=== PATIENT | male | born 1950 | race Caucasian/White ===

== ENCOUNTER 2016-07-18 14:20 | Emergency (ER) | payer OTHER ==
[~2016-07-18] VITALS: Ht 180.3 cm; Wt 89.4 kg
[~2016-07-18 14:20] MED LIST: ADVAIR HFA120 INHAL1 IH; ADVAIR HFA120 INHALA IH; ANCEF,KEFZOL1 GM IM; ANCEF,KEFZOL1 GM IV; APLISOL5 TUB UNIT ID; AQUAPHOR OINTM105 GM TP; ASPERCREME76.5 GM TP; ASPIRIN325 MG PO; ATORVASTATIN CA80 MG PO; BENADRYL25 MG PO; CALCITRIOL0.25 MCG PO; CALCIUM ACETAT668 MG PO; CALPHRON667 MG PO; CEFEPIME-D2 GM/50 ML IV; CIPROFLOXACIN250 MG PO; CLEARLAX510 GM PO; CLINDAMYCIN HC300 MG PO; CYMBALTA60 MG PO; DOXEPIN HCL25 MG PO; DRISDOL50000 UNIT PO; DULCOLAX10 MG PR; DUONEB 2.5-0.5 M3 ML AEROSOL; ERGOCALCIF50000 UNIT PO; FENOFIBRATE160 M1 PO; FERROUS SULFAT325 MG PO; FLEET ENEMA-AD118 ML PR; FLEET MINERAL133 ML PR; FLORANEX CHE1 TABLET PO; FLOVENT 11120 INHALA IH; FUROSEMIDE20 MG PO; FUROSEMIDE40 MG PO; GABAPENTIN300 MG PO; GRALISE300 MG PO; HYDROCHLOROTHIA25 MG PO; IRON325 MG PO; LASIX20 MG PO; LASIX40 MG PO; LEVOFLOXACIN750 MG PO; LIDOCAINE700 MG TD; LIDODERM 5% P1 PATCH TD; LIDOPATCH1 EACH TD; LIPITOR80 MG PO; LISINOPRIL5 MG PO; LITE COAT ASPI325 M1 PO; LOPRESSOR25 MG PO; LOPRESSOR50 MG PO; LYRICA150 MG PO; METOPROLOL TART50 MG PO; MIDODRINE HCL10 MG PO; MILK OF MAGN PO; MIRALAX255 GM PO; NEPHRO-VITE,1 TABLET PO; NEURONTIN300 MG PO; NORCO 5/3251 TABLET PO; OXYCODONE HCL5 MG PO; OXYCONTIN10 MG PO; OXYCONTIN15 MG PO; PLAVIX75 MG PO; PREDNISONE5 MG PO; RENVELA800 MG PO; ROBAFEN CF SYR118 M1 PO; ROBITUSSIN100 MG/5 M PO; ROXICODONE5 MG PO; SENNA8.6 MG PO; SINEQUAN25 MG PO; SPIRIVA RESPIMAT4 GM IH; SPIRIVA1 INHALATI IH; TAMSULOSIN HCL0.4 MG PO; TOPROL XL25 MG PO; TYLENOL EXTRA500 MG PO; TYLENOL REGULA325 MG PO; VANCOMYCIN HCL1 GM IV; VENTOLIN HFA18 GM IH; VIRT-CAPS SOFTGE1 MG PO; ZESTRIL2.5 MG PO; ZETIA10 MG PO; ZOCOR80 MG PO
[2016-07-18 16:24] LABS: HEMATOCRIT 30.3 % (38.0-50.0); MCH 26.9 PG (29.0-34.0); MCHC 29.7 G/DL (30.0-36.0); MCV 90.7 FL (86-99); MEAN PLAT.VOLUME 8.7 uM^3 (9.0-12.4); PLATELET COUNT 250 K/uL (156-360); RBC DIS.WIDTH-CV 16.6 % (11.8-14.6); RED BLOOD COUNT 3.34 M/uL (4.00-5.50); WHITE BLOOD COUNT 9.4 K/uL (4.1-10.2)
[2016-07-18 16:34] LABS: CHLORIDE 100 mEq/L (99-109); POTASSIUM 3.8 mEq/L (3.7-5.4); SODIUM 137 mEq/L (136-147)
[2016-07-18 16:36] LABS: GLUCOSE 101 mg/dL (70-99)
[2016-07-18 16:38] LABS: ANION GAP 10 MEQ/L (2-14)
[2016-07-18 16:40] LABS: GFR ESTIMATE (CALCULATED) 34 mL/min/
[2016-07-18 16:41] LABS: UREA NITROGEN (BUN) 21 mg/dL (9-23)
[2016-07-18 16:45] LABS: TROP-I INTERPRETATION NEGATIVE; TROPONIN-I 0.03 ng/mL (0.0-0.30)
[2016-07-18 17:38] VITALS: BP 143/72
== END 2016-07-18 17:49 ==
LOC: EME 14:20
PROVIDERS: Emergency Medicine
DX: R06.00 Dyspnea, unspecified (principal); I25.2 Old myocardial infarction; Z99.2 Dependence on renal dialysis; Z99.81 Dependence on supplemental oxygen; Z95.1 Presence of aortocoronary bypass graft; Z95.5 Presence of coronary angioplasty implant and graft; Z88.0 Allergy status to penicillin; Z88.6 Allergy status to analgesic agent
CPT/HCPCS: 71020; 80048; 84484; 85027; 93005; 99281; 99284

== ENCOUNTER 2016-09-25 02:57 | Inpatient (IN) | payer OTHER ==
[~2016-09-25] VITALS: Ht 180.3 cm; Wt 93.6 kg
[2016-09-25 04:02] LABS: EOSINOPHIL (%) 2.7 % (0-5); EOSINOPHIL COUNT 0.2 K/uL (0-0.3); HEMATOCRIT 36.3 % (38.0-50.0); IMMATURE GRANULOCYTE (%) 0.6 % (0.0-0.7); INSTRUMENT ABS NEUTROPHIL CT 5.2 K/uL; LYMPHOCYTE COUNT 0.9 K/uL (1.0-2.8); MCHC 28.7 G/DL (30.0-36.0); MCV 97.6 FL (86-99); MEAN PLAT.VOLUME 9.6 uM^3 (9.0-12.4); MONOCYTE (%) 9.9 % (3-12); MONOCYTE COUNT 0.7 K/uL (0-0.8); NEUTROPHIL (%) 73.8 % (45-76); NEUTROPHIL COUNT 5.2 K/uL (1.8-6.4); PLATELET COUNT 150 K/uL (156-360); RBC DIS.WIDTH-CV 17.1 % (11.8-14.6); RBC DIS.WIDTH-SD 60.7 % (39-53); RED BLOOD COUNT 3.72 M/uL (4.00-5.50); WHITE BLOOD COUNT 7.1 K/uL (4.1-10.2)
[2016-09-25 04:13] LABS: CHLORIDE 98 mEq/L (99-109); POTASSIUM 4.8 mEq/L (3.7-5.4); SODIUM 136 mEq/L (136-147)
[2016-09-25 04:15] LABS: GLUCOSE 86 mg/dL (70-99)
[2016-09-25 04:16] LABS: ANION GAP 11 MEQ/L (2-14)
[2016-09-25 04:18] LABS: GFR ESTIMATE (CALCULATED) 17 mL/min/
[2016-09-25 04:19] LABS: UREA NITROGEN (BUN) 38 mg/dL (9-23)
[2016-09-25 04:21] LABS: CREATINE KINASE 5 IU/L (1-294)
[2016-09-25 04:25] LABS: TROP-I INTERPRETATION NEGATIVE; TROPONIN-I 0.01 ng/mL (0.0-0.30)
[2016-09-25] MEDS ORDERED: DURAGESIC25 MCG TD (10:36)
[2016-09-25] MEDS ORDERED: INDERAL20 MG PO (10:44)
[2016-09-25] MEDS ORDERED: COLACE100 MG PO (10:46)
[2016-09-25] MEDS ORDERED: ADVAIR HFA120 INHAL1 IH (10:46)
[2016-09-25] MEDS ORDERED: LEVAQUIN500 MG PO (10:50)
[2016-09-25] MEDS ORDERED: ANORO ELLIPTA1 EACH IH (10:51)
[2016-09-25 12:16] LABS: TROP-I INTERPRETATION NEGATIVE; TROPONIN-I < 0.01 ng/mL (0.0-0.30)
[2016-09-25 18:52] VITALS: BP 113/72
[2016-09-25 19:30] VITALS: BP 116/58
[2016-09-25 23:23] VITALS: BP 124/72
[2016-09-26 03:13] VITALS: BP 109/59
[2016-09-26 07:09] LABS: ALKALINE PHOSPHATASE 112 IU/L (3-129); ANION GAP 6 MEQ/L (2-14); CHLORIDE 98 MEQ/L (99-109); GFR ESTIMATE (CALCULATED) 14 mL/min/; GLUCOSE 81 mg/dL (70-99); POTASSIUM 4.7 MEQ/L (3.7-5.4); SAMPLE HEMOLYSIS CHECK 0; SAMPLE ICTERIC CHECK 0; SAMPLE LIPEMIA CHECK 0; SODIUM 134 MEQ/L (136-147); TOTAL BILIRUBIN 0.9 MG/DL (0.0-1.0); UREA NITROGEN (BUN) 43 mg/dL (9-23)
[2016-09-26 07:14] LABS: HEMATOCRIT 32.3 % (38.0-50.0); MCH 28.1 PG (29.0-34.0); MCHC 29.1 G/DL (30.0-36.0); MCV 96.7 FL (86-99); MEAN PLAT.VOLUME 9.9 uM^3 (9.0-12.4); PLATELET COUNT 132 K/uL (156-360); RBC DIS.WIDTH-SD 59.8 % (39-53); RED BLOOD COUNT 3.34 M/uL (4.00-5.50); WHITE BLOOD COUNT 6.1 K/uL (4.1-10.2)
[2016-09-26 13:14] VITALS: BP 107/64
[2016-09-26 15:32] VITALS: BP 96/53
[2016-09-26 20:19] VITALS: BP 107/60
[2016-09-26 23:39] VITALS: BP 107/65
[2016-09-27] VITALS (7 sets, daily range): BP systolic 101–125; BP diastolic 55–73
[2016-09-27 07:16] LABS: BASOPHIL COUNT 0.1 K/uL (0-0.1); EOSINOPHIL (%) 3.4 % (0-5); EOSINOPHIL COUNT 0.2 K/uL (0-0.3); HEMATOCRIT 34.2 % (38.0-50.0); IMMATURE GRANULOCYTE (%) 0.2 % (0.0-0.7); INSTRUMENT ABS NEUTROPHIL CT 3.9 K/uL; LYMPHOCYTE COUNT 0.8 K/uL (1.0-2.8); MCH 28.2 PG (29.0-34.0); MCHC 29.2 G/DL (30.0-36.0); MCV 96.3 FL (86-99); MEAN PLAT.VOLUME 9.9 uM^3 (9.0-12.4); MONOCYTE COUNT 0.5 K/uL (0-0.8); NEUTROPHIL (%) 72.5 % (45-76); NEUTROPHIL COUNT 3.9 K/uL (1.8-6.4); PLATELET COUNT 144 K/uL (156-360); RBC DIS.WIDTH-SD 60.3 % (39-53); RED BLOOD COUNT 3.55 M/uL (4.00-5.50); WHITE BLOOD COUNT 5.4 K/uL (4.1-10.2)
[2016-09-27 08:36] LABS: ANION GAP 7 MEQ/L (2-14); CHLORIDE 99 MEQ/L (99-109); POTASSIUM 4.2 MEQ/L (3.7-5.4); SAMPLE HEMOLYSIS CHECK 0; SAMPLE ICTERIC CHECK 0; SAMPLE LIPEMIA CHECK 0; SODIUM 137 MEQ/L (136-147)
[2016-09-27 08:43] LABS: GFR ESTIMATE (CALCULATED) 19 mL/min/; GLUCOSE 101 mg/dL (70-99); UREA NITROGEN (BUN) 27 mg/dL (9-23)
[2016-09-28 03:30] VITALS: BP 108/60
[2016-09-28 07:23] VITALS: BP 110/55
[2016-09-28 08:29] LABS: HEMATOCRIT 31.8 % (38.0-50.0); MCHC 28.9 G/DL (30.0-36.0); MCV 96.7 FL (86-99); MEAN PLAT.VOLUME 9.6 uM^3 (9.0-12.4); PLATELET COUNT 128 K/uL (156-360); RBC DIS.WIDTH-CV 16.9 % (11.8-14.6); RBC DIS.WIDTH-SD 59.6 % (39-53); RED BLOOD COUNT 3.29 M/uL (4.00-5.50); WHITE BLOOD COUNT 5.7 K/uL (4.1-10.2)
[2016-09-28 08:39] LABS: ANION GAP 8 MEQ/L (2-14); CHLORIDE 99 MEQ/L (99-109); POTASSIUM 4.3 MEQ/L (3.7-5.4); SAMPLE HEMOLYSIS CHECK 0; SAMPLE ICTERIC CHECK 0; SAMPLE LIPEMIA CHECK 0; SODIUM 136 MEQ/L (136-147)
[2016-09-28 08:45] LABS: GFR ESTIMATE (CALCULATED) 17 mL/min/; GLUCOSE 106 mg/dL (70-99); UREA NITROGEN (BUN) 34 mg/dL (9-23)
[2016-09-28 11:48] VITALS: BP 144/64
[2016-09-28 16:14] VITALS: BP 136/74
[2016-09-28 22:43] VITALS: BP 127/75
[2016-09-29 03:03] VITALS: BP 117/64
[2016-09-29 07:30] VITALS: BP 124/77
[2016-09-29 11:06] VITALS: BP 132/87
[2016-09-29 22:35] VITALS: BP 123/73
[2016-09-29 23:00] VITALS: BP 134/80
[2016-09-30 00:29] LABS: TROP-I INTERPRETATION NEGATIVE; TROPONIN-I 0.02 ng/mL (0.0-0.30)
[2016-09-30 04:44] VITALS: BP 119/69
[2016-09-30 06:41] LABS: TROP-I INTERPRETATION NEGATIVE; TROPONIN-I 0.03 ng/mL (0.0-0.30)
[2016-09-30 07:09] VITALS: BP 114/77
[2016-09-30 08:23] LABS: BASOPHIL COUNT 0.1 K/uL (0-0.1); EOSINOPHIL (%) 1.1 % (0-5); EOSINOPHIL COUNT 0.1 K/uL (0-0.3); HEMATOCRIT 33.8 % (38.0-50.0); IMMATURE GRANULOCYTE (%) 0.3 % (0.0-0.7); INSTRUMENT ABS NEUTROPHIL CT 6.4 K/uL; LYMPHOCYTE COUNT 0.8 K/uL (1.0-2.8); MCH 27.7 PG (29.0-34.0); MCHC 29.3 G/DL (30.0-36.0); MCV 94.4 FL (86-99); MEAN PLAT.VOLUME 10.1 uM^3 (9.0-12.4); MONOCYTE (%) 7.8 % (3-12); MONOCYTE COUNT 0.6 K/uL (0-0.8); NEUTROPHIL (%) 80.6 % (45-76); NEUTROPHIL COUNT 6.4 K/uL (1.8-6.4); PLATELET COUNT 131 K/uL (156-360); RBC DIS.WIDTH-CV 16.5 % (11.8-14.6); RBC DIS.WIDTH-SD 57.5 % (39-53); RED BLOOD COUNT 3.58 M/uL (4.00-5.50)
[2016-09-30 08:29] LABS: ANION GAP 6 MEQ/L (2-14); CHLORIDE 97 MEQ/L (99-109); GFR ESTIMATE (CALCULATED) 18 mL/min/; GLUCOSE 91 mg/dL (70-99); POTASSIUM 4.8 MEQ/L (3.7-5.4); SAMPLE HEMOLYSIS CHECK 0; SAMPLE ICTERIC CHECK 0; SAMPLE LIPEMIA CHECK 0; SODIUM 133 MEQ/L (136-147); UREA NITROGEN (BUN) 31 mg/dL (9-23)
[2016-09-30 12:00] VITALS: BP 110/68
[2016-09-30 14:39] LABS: TROP-I INTERPRETATION NEGATIVE; TROPONIN-I 0.03 ng/mL (0.0-0.30)
[2016-09-30 17:11] VITALS: BP 107/65
[2016-09-30 19:24] VITALS: BP 105/66
[2016-09-30 22:03] LABS: TROP-I INTERPRETATION NEGATIVE; TROPONIN-I 0.03 ng/mL (0.0-0.30)
[2016-09-30 23:43] VITALS: BP 117/66
[2016-10-01 03:50] VITALS: BP 114/68
[2016-10-01 07:27] VITALS: BP 127/67
[2016-10-01 16:14] VITALS: BP 114/63
[2016-10-01 19:01] VITALS: BP 100/64
[2016-10-01 23:56] VITALS: BP 104/69
[2016-10-02 03:41] VITALS: BP 112/78
[2016-10-02 08:00] VITALS: BP 126/85
[2016-10-02 10:59] VITALS: BP 110/62
[2016-10-02] MEDS ORDERED: LOPRESSOR50 MG PO (14:36)
[2016-10-02] MEDS ORDERED: OXYCODONE HCL5 MG PO (14:36)
[2016-10-02] MEDS ORDERED: FUROSEMIDE80 MG PO (14:36)
[2016-10-02 15:25] VITALS: BP 104/72
== END 2016-10-02 19:33 | DRG 291 ==
LOC: EME 02:57 → 4EAST 05:25 → EDOF 05:25 → 5EAST 05:25 → 4EAST 17:34 → 5EAST 09-27 00:51
PROVIDERS: Emergency Medicine; Internal Medicine; Internal Medicine Nephrology
PROC: 5A1D60Z (ICD-10-PCS; principal; 2016-09-26)
DX: I13.2 Hypertensive heart and chronic kidney disease with heart failure and with stage 5 chronic kidney disease, or end stage renal disease (principal); I50.33 Acute on chronic diastolic (congestive) heart failure; N18.6 End stage renal disease; Z99.2 Dependence on renal dialysis; I48.2 Chronic atrial fibrillation; D50.9 Iron deficiency anemia, unspecified; I27.2 Other secondary pulmonary hypertension; D63.1 Anemia in chronic kidney disease; Z99.81 Dependence on supplemental oxygen; I25.10 Atherosclerotic heart disease of native coronary artery without angina pectoris; Z95.5 Presence of coronary angioplasty implant and graft; Z90.5 Acquired absence of kidney; M06.9 Rheumatoid arthritis, unspecified; Z87.891 Personal history of nicotine dependence; N40.0 Benign prostatic hyperplasia without lower urinary tract symptoms; G47.33 Obstructive sleep apnea (adult) (pediatric); I08.1 Rheumatic disorders of both mitral and tricuspid valves; I95.89 Other hypotension; E66.01 Morbid (severe) obesity due to excess calories; Z68.30 Body mass index [BMI] 30.0-30.9, adult; J44.9 Chronic obstructive pulmonary disease, unspecified; R00.0 Tachycardia, unspecified
CPT/HCPCS: 71010; 80048; 80048 91; 80053; 80069; 82040; 82550; 83880; 84100; 84484; 85025; 85027; 87340; 93005; 94640; 94640 76; 94760; 94799; 99202; 99281; 99285; J1644; J1940; J7644; P9047

== ENCOUNTER 2016-10-05 14:32 | Emergency (ER) | payer OTHER ==
[~2016-10-05] VITALS: Ht 180.3 cm; Wt 84.7 kg
[~2016-10-05 14:32] MED LIST changes: +ANORO ELLIPTA1 EACH IH; +COLACE100 MG PO; +DURAGESIC25 MCG TD; +FUROSEMIDE80 MG PO; +INDERAL20 MG PO; +LEVAQUIN500 MG PO
[2016-10-05 17:00] VITALS: BP 102/61
== END 2016-10-05 17:02 ==
LOC: EME → EDBD 14:32 → EME 14:32
PROC: 0HQLXZZ Repair Left Lower Leg Skin, External Approach (ICD-10-PCS; principal; 2016-10-05)
DX: S81.812A Laceration without foreign body, left lower leg, initial encounter (principal); N18.6 End stage renal disease; Z99.2 Dependence on renal dialysis; Z88.0 Allergy status to penicillin; W45.8XXA Other foreign body or object entering through skin, initial encounter; Z88.6 Allergy status to analgesic agent
CPT/HCPCS: 99281; 99285

== ENCOUNTER 2016-11-02 15:24 | Emergency (ER) | payer OTHER ==
[~2016-11-02] VITALS: Ht 180.3 cm; Wt 78.9 kg
[2016-11-02 16:10] LABS: HEMATOCRIT 34.6 % (38.0-50.0); MCH 27.3 PG (29.0-34.0); MCHC 29.5 G/DL (30.0-36.0); MCV 92.8 FL (86-99); MEAN PLAT.VOLUME 9.2 uM^3 (9.0-12.4); RBC DIS.WIDTH-SD 54.6 % (39-53); RED BLOOD COUNT 3.73 M/uL (4.00-5.50); WHITE BLOOD COUNT 6.3 K/uL (4.1-10.2)
[2016-11-02 16:12] LABS: PLATELET COUNT 212 K/uL (156-360)
[2016-11-02 16:19] LABS: CHLORIDE 99 mEq/L (99-109); POTASSIUM 3.9 mEq/L (3.7-5.4); SODIUM 139 mEq/L (136-147)
[2016-11-02 16:21] LABS: GLUCOSE 82 mg/dL (70-99)
[2016-11-02 16:22] LABS: ANION GAP 8 MEQ/L (2-14)
[2016-11-02 16:25] LABS: GFR ESTIMATE (CALCULATED) 32 mL/min/
[2016-11-02 16:26] LABS: UREA NITROGEN (BUN) 19 mg/dL (9-23)
[2016-11-02] MEDS ORDERED: ZOFRAN4 MG PO (16:39)
[2016-11-02 17:35] VITALS: BP 100/66
== END 2016-11-02 17:53 ==
LOC: EME 15:24
PROVIDERS: Emergency Medicine
DX: E86.0 Dehydration (principal); R11.2 Nausea with vomiting, unspecified; R19.7 Diarrhea, unspecified; I12.0 Hypertensive chronic kidney disease with stage 5 chronic kidney disease or end stage renal disease; N18.6 End stage renal disease; Z99.2 Dependence on renal dialysis; Z90.5 Acquired absence of kidney; J44.9 Chronic obstructive pulmonary disease, unspecified; J45.909 Unspecified asthma, uncomplicated; Z95.1 Presence of aortocoronary bypass graft; Z95.5 Presence of coronary angioplasty implant and graft
CPT/HCPCS: 71020; 80048; 85027; 99281; 99285; J2405; J7040

== ENCOUNTER 2016-11-04 14:39 | Inpatient (IN) | payer OTHER ==
[~2016-11-04] VITALS: Ht 180.3 cm; Wt 74.9 kg
[~2016-11-04 14:39] MED LIST changes: +ZOFRAN4 MG PO
[2016-11-04 15:43] LABS: BASOPHIL COUNT 0.1 K/uL (0-0.1); EOSINOPHIL (%) 1.6 % (0-5); EOSINOPHIL COUNT 0.2 K/uL (0-0.3); HEMATOCRIT 38.5 % (38.0-50.0); IMMATURE GRANULOCYTE (%) 0.4 % (0.0-0.7); INSTRUMENT ABS NEUTROPHIL CT 7.8 K/uL; LYMPHOCYTE COUNT 0.6 K/uL (1.0-2.8); MCH 27.4 PG (29.0-34.0); MCHC 28.6 G/DL (30.0-36.0); MCV 95.8 FL (86-99); MEAN PLAT.VOLUME 9.4 uM^3 (9.0-12.4); MONOCYTE (%) 8.6 % (3-12); MONOCYTE COUNT 0.8 K/uL (0-0.8); NEUTROPHIL (%) 82.9 % (45-76); NEUTROPHIL COUNT 7.8 K/uL (1.8-6.4); PLATELET COUNT 234 K/uL (156-360); RBC DIS.WIDTH-CV 16.2 % (11.8-14.6); RED BLOOD COUNT 4.02 M/uL (4.00-5.50); WHITE BLOOD COUNT 9.5 K/uL (4.1-10.2)
[2016-11-04 15:48] LABS: CHLORIDE 99 mEq/L (99-109); POTASSIUM 4.4 mEq/L (3.7-5.4); SODIUM 138 mEq/L (136-147)
[2016-11-04 15:51] LABS: ANION GAP 11 MEQ/L (2-14)
[2016-11-04 15:53] LABS: GFR ESTIMATE (CALCULATED) 32 mL/min/
[2016-11-04 15:54] LABS: UREA NITROGEN (BUN) 17 mg/dL (9-23)
[2016-11-04 15:57] LABS: GLUCOSE 108 mg/dL (70-99)
[2016-11-04 15:58] LABS: TROP-I INTERPRETATION NEGATIVE; TROPONIN-I 0.02 ng/mL (0.0-0.30)
[2016-11-04 17:15] LABS: ADD MIUA? YES; BILIRUBIN NEGATIVE; BLOOD MODERATE; COLOR YELLOW ((YELLOW)); GLUCOSE (STRIP) NEGATIVE; KETONES NEGATIVE; LEUKOCYTES MODERATE; NITRITE NEGATIVE; PROTEIN (STRIP) 100; SPECIFIC GRAVITY 1.009 (1.000-1.030); UROBILINOGEN 0.2 MG/DL (0.2-1.0)
[2016-11-04 17:32] LABS: CASTS NONE SEEN /LPF; EPITHELIAL CELLS NONE SEEN /HPF; MUCUS NONE SEEN /LPF
[2016-11-04 17:35] LABS: BACTERIA NONE SEEN /HPF; RED BLOOD CELLS NONE SEEN /HPF (0-5); UCUL ADDED? YES; WHITE BLOOD CELLS TNTC /HPF (0-5)
[2016-11-04 18:08] LABS: BASE EXCESS 3.8 mEq/L (-3 to +3); BICARBONATE 30.9 mEq/L (22-26); CARBOXY HGB 2.5 % (0-5); METHEMOGLOBIN 1.3 % (0-1.5); PCO2 60 mm Hg (35-45); PO2 103 mm Hg (80-100); SITE RR; pH 7.32 (7.35-7.45)
[2016-11-04 18:09] LABS: COMMENTS - BLOOD GASES A+C+; DEVICE VENT; FI02 50 %; MODE AC; PEEP 5 CM/H20; TIDAL VOLUME 400 ML; TOTAL RESP RATE 23 resp/min
[2016-11-04] MEDS ORDERED: ADVAIR HFA120 INHAL1 IH (18:12)
[2016-11-04 18:16] LABS: MECHANICAL RATE 14 resp/min
[2016-11-04] MEDS ORDERED: NEPHRO-VITE,1 TABLET PO (18:17)
[2016-11-04] MEDS ORDERED: LASIX80 MG PO (18:18)
[2016-11-04] MEDS ORDERED: LOPRESSOR25 MG PO (18:20)
[2016-11-04] MEDS ORDERED: RENVELA2.4 GM PO (18:22)
[2016-11-04] MEDS ORDERED: MILK OF MAGN PO (18:25)
[2016-11-04] MEDS ORDERED: OXYCODONE HCL10 MG PO (18:26)
[2016-11-04] MEDS ORDERED: TYLENOL REGULA325 MG PO (18:28)
[2016-11-04] MEDS ORDERED: ZOFRAN4 MG PO (18:29)
[2016-11-04 21:00] VITALS: BP 107/66; BP 86/58
[2016-11-04 21:46] LABS: BASE EXCESS 4.5 mEq/L (-3 to +3); BICARBONATE 31.6 mEq/L (22-26); CARBOXY HGB 2.1 % (0-5); COMMENTS - BLOOD GASES A+C+; DEVICE 980; FI02 50 %; MECHANICAL RATE 14 resp/min; METHEMOGLOBIN 1.4 % (0-1.5); MODE AC; PCO2 60 mm Hg (35-45); PEEP 5 CM/H20; PO2 93 mm Hg (80-100); SITE RR; TIDAL VOLUME 400 ML; TOTAL RESP RATE 30 resp/min; pH 7.33 (7.35-7.45)
[2016-11-04 22:00] VITALS: BP 70/51
[2016-11-04 22:30] VITALS: BP 74/47
[2016-11-04 23:00] VITALS: BP 78/46
[2016-11-04 23:04] LABS: METH RESISTANT S AUREUS PCR POSITIVE (NEGATIVE)
[2016-11-04 23:06] LABS: PROBE CHECK PASS
[2016-11-04 23:30] VITALS: BP 76/45
[2016-11-04 23:52] LABS: BASE EXCESS 4.9 mEq/L (-3 to +3); BICARBONATE 30.4 mEq/L (22-26); CARBOXY HGB 2.3 % (0-5); FI02 40 %; MECHANICAL RATE 18 resp/min; METHEMOGLOBIN 1.4 % (0-1.5); MODE ACVC; PCO2 49 mm Hg (35-45); PEEP 5 CM/H20; PO2 78 mm Hg (80-100); TIDAL VOLUME 500 ML; TOTAL RESP RATE 18 resp/min
[2016-11-04 23:53] LABS: COMMENTS - BLOOD GASES C+; DEVICE VENT; SITE RR
[2016-11-04 23:58] LABS: POINT-OF-CARE METER ID UU13113731
[2016-11-05] VITALS (27 sets, daily range): BP systolic 64–117; BP diastolic 43–77
[2016-11-05 05:53] LABS: HEMATOCRIT 31.7 % (38.0-50.0); MCH 27.3 PG (29.0-34.0); MCHC 28.4 G/DL (30.0-36.0); MCV 96.1 FL (86-99); MEAN PLAT.VOLUME 9.6 uM^3 (9.0-12.4); PLATELET COUNT 185 K/uL (156-360); RBC DIS.WIDTH-CV 16.2 % (11.8-14.6); RBC DIS.WIDTH-SD 57.9 % (39-53)
[2016-11-05 06:12] LABS: ALKALINE PHOSPHATASE 142 IU/L (3-129); ANION GAP 12 MEQ/L (2-14); CHLORIDE 98 MEQ/L (99-109); GFR ESTIMATE (CALCULATED) 24 mL/min/; GLUCOSE 91 mg/dL (70-99); POTASSIUM 3.8 MEQ/L (3.7-5.4); SAMPLE HEMOLYSIS CHECK 0; SAMPLE ICTERIC CHECK 0; SAMPLE LIPEMIA CHECK 0; SODIUM 135 MEQ/L (136-147); TOTAL BILIRUBIN 1.2 MG/DL (0.0-1.0); UREA NITROGEN (BUN) 24 mg/dL (9-23)
[2016-11-05 17:54] LABS: POINT-OF-CARE METER ID UU14162636
[2016-11-06] VITALS (24 sets, daily range): BP systolic 77–123; BP diastolic 51–74
[2016-11-06 00:53] LABS: POINT-OF-CARE METER ID UU13113803; POINT-OF-CARE USER ID ENVSME70
[2016-11-06 06:05] LABS: EOSINOPHIL (%) 0.2 % (0-5); HEMATOCRIT 30.4 % (38.0-50.0); IMMATURE GRANULOCYTE (%) 0.3 % (0.0-0.7); INSTRUMENT ABS NEUTROPHIL CT 4.7 K/uL; LYMPHOCYTE COUNT 0.7 K/uL (1.0-2.8); MCH 27.1 PG (29.0-34.0); MCHC 29.3 G/DL (30.0-36.0); MCV 92.7 FL (86-99); MEAN PLAT.VOLUME 9.5 uM^3 (9.0-12.4); MONOCYTE COUNT 0.7 K/uL (0-0.8); NEUTROPHIL (%) 76.5 % (45-76); NEUTROPHIL COUNT 4.7 K/uL (1.8-6.4); PLATELET COUNT 163 K/uL (156-360); RBC DIS.WIDTH-SD 54.9 % (39-53); RED BLOOD COUNT 3.28 M/uL (4.00-5.50); WHITE BLOOD COUNT 6.1 K/uL (4.1-10.2)
[2016-11-06 06:10] LABS: POINT-OF-CARE METER ID UU13113803; POINT-OF-CARE USER ID LABHNS84
[2016-11-06 06:32] LABS: ALKALINE PHOSPHATASE 110 IU/L (3-129); ANION GAP 12 MEQ/L (2-14); CHLORIDE 99 MEQ/L (99-109); GFR ESTIMATE (CALCULATED) 17 mL/min/; GLUCOSE 88 mg/dL (70-99); POTASSIUM 4.2 MEQ/L (3.7-5.4); SAMPLE HEMOLYSIS CHECK 0; SAMPLE ICTERIC CHECK 0; SAMPLE LIPEMIA CHECK 0; SODIUM 135 MEQ/L (136-147); TOTAL BILIRUBIN 1.1 MG/DL (0.0-1.0); UREA NITROGEN (BUN) 35 mg/dL (9-23)
[2016-11-06 12:45] LABS: POINT-OF-CARE METER ID UU13113803; POINT-OF-CARE USER ID 612031313
[2016-11-06 18:03] LABS: POINT-OF-CARE METER ID UU13113803; POINT-OF-CARE USER ID 612031313
[2016-11-06 23:47] LABS: POINT-OF-CARE METER ID UU14174217
[2016-11-07] VITALS (24 sets, daily range): BP systolic 90–118; BP diastolic 60–73
[2016-11-07 05:30] LABS: POINT-OF-CARE USER ID LABHNS84
[2016-11-07 06:22] LABS: HEMATOCRIT 30.7 % (38.0-50.0); MCH 27.4 PG (29.0-34.0); MCHC 29.3 G/DL (30.0-36.0); MCV 93.6 FL (86-99); MEAN PLAT.VOLUME 9.9 uM^3 (9.0-12.4); PLATELET COUNT 174 K/uL (156-360); RBC DIS.WIDTH-CV 16.3 % (11.8-14.6); RBC DIS.WIDTH-SD 55.5 % (39-53); RED BLOOD COUNT 3.28 M/uL (4.00-5.50); WHITE BLOOD COUNT 7.1 K/uL (4.1-10.2)
[2016-11-07 06:39] LABS: ANION GAP 15 MEQ/L (2-14); CHLORIDE 98 MEQ/L (99-109); POTASSIUM 4.3 MEQ/L (3.7-5.4); SAMPLE HEMOLYSIS CHECK 0; SAMPLE ICTERIC CHECK 0; SAMPLE LIPEMIA CHECK 0; SODIUM 136 MEQ/L (136-147)
[2016-11-07 06:46] LABS: GFR ESTIMATE (CALCULATED) 14 mL/min/; GLUCOSE 72 mg/dL (70-99); UREA NITROGEN (BUN) 48 mg/dL (9-23)
[2016-11-07 12:57] LABS: POINT-OF-CARE METER ID UU13113803
[2016-11-07 17:33] LABS: POINT-OF-CARE METER ID UU13113803
[2016-11-08] VITALS (23 sets, daily range): BP systolic 84–112; BP diastolic 49–76
[2016-11-08 00:36] LABS: POINT-OF-CARE METER ID UU13113803
[2016-11-08 05:34] LABS: POINT-OF-CARE METER ID UU14174217
[2016-11-08 06:30] LABS: EOSINOPHIL (%) 1.8 % (0-5); EOSINOPHIL COUNT 0.1 K/uL (0-0.3); HEMATOCRIT 33.6 % (38.0-50.0); IMMATURE GRANULOCYTE (%) 0.3 % (0.0-0.7); INSTRUMENT ABS NEUTROPHIL CT 6.1 K/uL; LYMPHOCYTE COUNT 0.9 K/uL (1.0-2.8); MCH 27.9 PG (29.0-34.0); MCHC 29.5 G/DL (30.0-36.0); MCV 94.6 FL (86-99); MEAN PLAT.VOLUME 9.9 uM^3 (9.0-12.4); MONOCYTE COUNT 0.7 K/uL (0-0.8); NEUTROPHIL (%) 77.6 % (45-76); NEUTROPHIL COUNT 6.1 K/uL (1.8-6.4); PLATELET COUNT 195 K/uL (156-360); RBC DIS.WIDTH-CV 16.4 % (11.8-14.6); RBC DIS.WIDTH-SD 55.9 % (39-53); RED BLOOD COUNT 3.55 M/uL (4.00-5.50); WHITE BLOOD COUNT 7.9 K/uL (4.1-10.2)
[2016-11-08 07:03] LABS: ANION GAP 15 MEQ/L (2-14); CHLORIDE 96 MEQ/L (99-109); GFR ESTIMATE (CALCULATED) 21 mL/min/; GLUCOSE 61 mg/dL (70-99); POTASSIUM 4.1 MEQ/L (3.7-5.4); SAMPLE HEMOLYSIS CHECK 0; SAMPLE ICTERIC CHECK 0; SAMPLE LIPEMIA CHECK 0; SODIUM 137 MEQ/L (136-147); UREA NITROGEN (BUN) 27 mg/dL (9-23)
[2016-11-09] VITALS (24 sets, daily range): BP systolic 81–116; BP diastolic 54–90
[2016-11-09 00:05] LABS: POINT-OF-CARE METER ID UU14174217
[2016-11-09 05:55] LABS: POINT-OF-CARE METER ID UU13113803
[2016-11-09 06:02] LABS: BASE EXCESS 2.4 mEq/L (-3 to +3); BICARBONATE 27.8 mEq/L (22-26); CARBOXY HGB 1.8 % (0-5); METHEMOGLOBIN 1.7 % (0-1.5); PCO2 46 mm Hg (35-45); PO2 90 mm Hg (80-100); pH 7.39 (7.35-7.45)
[2016-11-09 06:03] LABS: COMMENTS - BLOOD GASES A+C+; DEVICE VENT; FI02 30 %; SITE LR
[2016-11-09 06:04] LABS: MODE SPONT; PEEP 5 CM/H20; PRES. SUPPORT 5 CM/H2O; TOTAL RESP RATE 30 resp/min
[2016-11-09 06:10] LABS: EOSINOPHIL (%) 2.4 % (0-5); EOSINOPHIL COUNT 0.1 K/uL (0-0.3); HEMATOCRIT 32.1 % (38.0-50.0); IMMATURE GRANULOCYTE (%) 0.4 % (0.0-0.7); INSTRUMENT ABS NEUTROPHIL CT 4.3 K/uL; LYMPHOCYTE COUNT 0.5 K/uL (1.0-2.8); MCH 27.1 PG (29.0-34.0); MCV 93.6 FL (86-99); MEAN PLAT.VOLUME 9.5 uM^3 (9.0-12.4); MONOCYTE (%) 8.3 % (3-12); MONOCYTE COUNT 0.5 K/uL (0-0.8); NEUTROPHIL (%) 78.5 % (45-76); NEUTROPHIL COUNT 4.3 K/uL (1.8-6.4); PLATELET COUNT 143 K/uL (156-360); RBC DIS.WIDTH-CV 16.6 % (11.8-14.6); RBC DIS.WIDTH-SD 56.3 % (39-53); RED BLOOD COUNT 3.43 M/uL (4.00-5.50)
[2016-11-09 06:12] LABS: WHITE BLOOD COUNT 5.4 K/uL (4.1-10.2)
[2016-11-09 06:23] LABS: ANION GAP 13 MEQ/L (2-14); CHLORIDE 98 MEQ/L (99-109); GFR ESTIMATE (CALCULATED) 19 mL/min/; POTASSIUM 4.1 MEQ/L (3.7-5.4); SAMPLE HEMOLYSIS CHECK 0; SAMPLE ICTERIC CHECK 0; SAMPLE LIPEMIA CHECK 0; SODIUM 136 MEQ/L (136-147); UREA NITROGEN (BUN) 36 mg/dL (9-23)
[2016-11-09 06:27] LABS: GLUCOSE 92 mg/dL (70-99)
[2016-11-09 18:17] LABS: POINT-OF-CARE METER ID UU13113803
[2016-11-10] VITALS (24 sets, daily range): BP systolic 0–114; BP diastolic 0–78
[2016-11-10 00:23] LABS: POINT-OF-CARE USER ID PHATLC
[2016-11-10 05:40] LABS: POINT-OF-CARE METER ID UU13113803; POINT-OF-CARE USER ID PHATLC
[2016-11-10 09:35] LABS: EOSINOPHIL (%) 1.2 % (0-5); EOSINOPHIL COUNT 0.1 K/uL (0-0.3); HEMATOCRIT 32.1 % (38.0-50.0); IMMATURE GRANULOCYTE (%) 0.3 % (0.0-0.7); LYMPHOCYTE COUNT 0.5 K/uL (1.0-2.8); MCH 26.9 PG (29.0-34.0); MCHC 29.3 G/DL (30.0-36.0); MEAN PLAT.VOLUME 9.4 uM^3 (9.0-12.4); MONOCYTE (%) 8.2 % (3-12); MONOCYTE COUNT 0.5 K/uL (0-0.8); NEUTROPHIL (%) 82.1 % (45-76); PLATELET COUNT 167 K/uL (156-360); RBC DIS.WIDTH-CV 16.4 % (11.8-14.6); RBC DIS.WIDTH-SD 54.7 % (39-53); RED BLOOD COUNT 3.49 M/uL (4.00-5.50); WHITE BLOOD COUNT 6.1 K/uL (4.1-10.2)
[2016-11-10 10:03] LABS: ANION GAP 11 MEQ/L (2-14); CHLORIDE 99 MEQ/L (99-109); GFR ESTIMATE (CALCULATED) 30 mL/min/; GLUCOSE 113 mg/dL (70-99); POTASSIUM 3.4 MEQ/L (3.7-5.4); SAMPLE HEMOLYSIS CHECK 0; SAMPLE ICTERIC CHECK 0; SAMPLE LIPEMIA CHECK 0; SODIUM 138 MEQ/L (136-147); UREA NITROGEN (BUN) 26 mg/dL (9-23)
[2016-11-10 15:40] LABS: BASE EXCESS 6.7 mEq/L (-3 to +3); BICARBONATE 31.3 mEq/L (22-26); CARBOXY HGB 1.6 % (0-5); COMMENTS - BLOOD GASES A+C+; DEVICE 980; FI02 30 %; METHEMOGLOBIN 1.7 % (0-1.5); MODE TC; PCO2 44 mm Hg (35-45); PO2 115 mm Hg (80-100); SITE RR; pH 7.46 (7.35-7.45)
[2016-11-10 23:12] LABS: POINT-OF-CARE USER ID PHATLC
[2016-11-11] VITALS (14 sets, daily range): BP systolic 85–116; BP diastolic 54–79
[2016-11-11 06:09] LABS: POINT-OF-CARE USER ID PHATLC
[2016-11-11 09:07] LABS: HEMATOCRIT 31.2 % (38.0-50.0); MCH 28.1 PG (29.0-34.0); MCHC 29.8 G/DL (30.0-36.0); MCV 94.3 FL (86-99); MEAN PLAT.VOLUME 9.5 uM^3 (9.0-12.4); PLATELET COUNT 160 K/uL (156-360); RBC DIS.WIDTH-CV 16.6 % (11.8-14.6); RBC DIS.WIDTH-SD 56.6 % (39-53); RED BLOOD COUNT 3.31 M/uL (4.00-5.50); WHITE BLOOD COUNT 4.9 K/uL (4.1-10.2)
[2016-11-11 09:19] LABS: ANION GAP 11 MEQ/L (2-14); CHLORIDE 100 MEQ/L (99-109); POTASSIUM 3.6 MEQ/L (3.7-5.4); SAMPLE HEMOLYSIS CHECK 0; SAMPLE ICTERIC CHECK 0; SAMPLE LIPEMIA CHECK 0; SODIUM 137 MEQ/L (136-147)
[2016-11-11 09:27] LABS: GFR ESTIMATE (CALCULATED) 22 mL/min/; GLUCOSE 81 mg/dL (70-99); UREA NITROGEN (BUN) 33 mg/dL (9-23)
[2016-11-12] VITALS (7 sets, daily range): BP systolic 90–125; BP diastolic 55–79
[2016-11-12 11:36] LABS: POINT-OF-CARE METER ID UU13113725
[2016-11-12 18:26] LABS: POINT-OF-CARE METER ID UU13113725
[2016-11-13 06:06] LABS: POINT-OF-CARE METER ID UU13113725
[2016-11-13 06:28] VITALS: BP 121/81
[2016-11-13 16:03] VITALS: BP 118/76
[2016-11-13 17:58] LABS: POINT-OF-CARE METER ID UU13113725
[2016-11-13 22:47] VITALS: BP 127/84
[2016-11-14] VITALS: BP 136/87
[2016-11-14 06:00] VITALS: BP 127/84
[2016-11-14 06:00] LABS: POINT-OF-CARE METER ID UU13113725
[2016-11-14 07:34] LABS: ANION GAP 14 MEQ/L (2-14); CHLORIDE 97 MEQ/L (99-109); GFR ESTIMATE (CALCULATED) 19 mL/min/; GLUCOSE 87 mg/dL (70-99); SAMPLE HEMOLYSIS CHECK 1; SAMPLE ICTERIC CHECK 0; SAMPLE LIPEMIA CHECK 0; SODIUM 133 MEQ/L (136-147); UREA NITROGEN (BUN) 31 mg/dL (9-23)
[2016-11-14 07:39] LABS: POTASSIUM 4.4 MEQ/L (3.7-5.4)
[2016-11-14 08:56] LABS: EOSINOPHIL (%) 2.1 % (0-5); EOSINOPHIL COUNT 0.1 K/uL (0-0.3); HEMATOCRIT 33.3 % (38.0-50.0); IMMATURE GRANULOCYTE (%) 0.5 % (0.0-0.7); INSTRUMENT ABS NEUTROPHIL CT 4.5 K/uL; LYMPHOCYTE COUNT 0.7 K/uL (1.0-2.8); MCH 27.3 PG (29.0-34.0); MCHC 29.7 G/DL (30.0-36.0); MEAN PLAT.VOLUME 9.5 uM^3 (9.0-12.4); MONOCYTE (%) 13.3 % (3-12); MONOCYTE COUNT 0.8 K/uL (0-0.8); NEUTROPHIL (%) 72.5 % (45-76); NEUTROPHIL COUNT 4.5 K/uL (1.8-6.4); PLATELET COUNT 187 K/uL (156-360); RBC DIS.WIDTH-CV 16.9 % (11.8-14.6); RBC DIS.WIDTH-SD 56.5 % (39-53); RED BLOOD COUNT 3.62 M/uL (4.00-5.50); WHITE BLOOD COUNT 6.3 K/uL (4.1-10.2)
[2016-11-14 12:00] VITALS: BP 127/74
[2016-11-14 14:48] LABS: POINT-OF-CARE METER ID UU13113725
[2016-11-14 15:47] VITALS: BP 138/72
[2016-11-14 17:31] VITALS: BP 102/64
[2016-11-14 18:32] LABS: POINT-OF-CARE METER ID UU13113725
[2016-11-14 23:12] VITALS: BP 118/78
[2016-11-14 23:20] LABS: POINT-OF-CARE METER ID UU13113725
[2016-11-15 05:00] VITALS: BP 106/66
[2016-11-15 05:20] LABS: POINT-OF-CARE USER ID STWHLR41
[2016-11-15 07:44] VITALS: BP 131/60
[2016-11-15 11:49] LABS: POINT-OF-CARE METER ID UU13113725
[2016-11-15 15:00] VITALS: BP 161/75
[2016-11-15 23:41] LABS: POINT-OF-CARE METER ID UU13113725
[2016-11-16] VITALS (8 sets, daily range): BP systolic 117–136; BP diastolic 61–82
[2016-11-16 06:04] LABS: POINT-OF-CARE METER ID UU13113725
[2016-11-16 08:36] LABS: EOSINOPHIL (%) 2.1 % (0-5); EOSINOPHIL COUNT 0.1 K/uL (0-0.3); HEMATOCRIT 34.3 % (38.0-50.0); IMMATURE GRANULOCYTE (%) 0.8 % (0.0-0.7); IMMATURE GRANULOCYTE COUNT 0.1 K/uL; INSTRUMENT ABS NEUTROPHIL CT 4.4 K/uL; LYMPHOCYTE COUNT 0.8 K/uL (1.0-2.8); MCH 27.8 PG (29.0-34.0); MCV 92.7 FL (86-99); MEAN PLAT.VOLUME 9.3 uM^3 (9.0-12.4); MONOCYTE (%) 10.1 % (3-12); MONOCYTE COUNT 0.6 K/uL (0-0.8); NEUTROPHIL (%) 72.7 % (45-76); NEUTROPHIL COUNT 4.4 K/uL (1.8-6.4); PLATELET COUNT 181 K/uL (156-360); RBC DIS.WIDTH-CV 16.9 % (11.8-14.6); RBC DIS.WIDTH-SD 56.7 % (39-53); WHITE BLOOD COUNT 6.1 K/uL (4.1-10.2)
[2016-11-16 08:40] LABS: ANION GAP 10 MEQ/L (2-14); CHLORIDE 97 MEQ/L (99-109); POTASSIUM 3.8 MEQ/L (3.7-5.4); SAMPLE HEMOLYSIS CHECK 0; SAMPLE ICTERIC CHECK 0; SAMPLE LIPEMIA CHECK 0; SODIUM 131 MEQ/L (136-147)
[2016-11-16 08:45] LABS: GFR ESTIMATE (CALCULATED) 19 mL/min/; GLUCOSE 91 mg/dL (70-99); UREA NITROGEN (BUN) 25 mg/dL (9-23)
[2016-11-16 11:57] LABS: IRON 53 MCG/DL (35-150)
[2016-11-16 12:14] LABS: POINT-OF-CARE METER ID UU13113725
[2016-11-16 15:03] LABS: BASE EXCESS 5.8 mEq/L (-3 to +3); BICARBONATE 29.8 mEq/L (22-26); CARBOXY HGB 2.7 % (0-5); METHEMOGLOBIN 1.4 % (0-1.5); PCO2 40 mm Hg (35-45); pH 7.48 (7.35-7.45)
[2016-11-16 15:04] LABS: DEVICE NC; O2 FLOW 3 L/MIN; PO2 58 mm Hg (80-100); SITE RR; TOTAL RESP RATE 24 resp/min
[2016-11-16 15:05] LABS: COMMENTS - BLOOD GASES A+C+
[2016-11-16 15:08] LABS: POINT-OF-CARE METER ID UU13113725
[2016-11-16 15:36] LABS: TROP-I INTERPRETATION NEGATIVE; TROPONIN-I 0.02 ng/mL (0.0-0.30)
[2016-11-17 00:25] LABS: POINT-OF-CARE METER ID UU13113725
[2016-11-17 04:30] VITALS: BP 110/65
[2016-11-17 05:39] LABS: POINT-OF-CARE METER ID UU13113725
[2016-11-17 07:03] VITALS: BP 108/61
[2016-11-17 16:04] VITALS: BP 110/52
[2016-11-17 20:00] VITALS: BP 120/65
[2016-11-17 23:41] VITALS: BP 130/75
[2016-11-18 03:59] VITALS: BP 123/62
[2016-11-18 06:20] VITALS: BP 111/68
[2016-11-18 09:12] LABS: BASOPHIL COUNT 0.1 K/uL (0-0.1); EOSINOPHIL (%) 2.9 % (0-5); EOSINOPHIL COUNT 0.2 K/uL (0-0.3); HEMATOCRIT 35.1 % (38.0-50.0); IMMATURE GRANULOCYTE (%) 0.3 % (0.0-0.7); INSTRUMENT ABS NEUTROPHIL CT 4.7 K/uL; MCHC 29.3 G/DL (30.0-36.0); MCV 91.9 FL (86-99); MEAN PLAT.VOLUME 9.4 uM^3 (9.0-12.4); MONOCYTE COUNT 0.6 K/uL (0-0.8); NEUTROPHIL (%) 72.1 % (45-76); NEUTROPHIL COUNT 4.7 K/uL (1.8-6.4); PLATELET COUNT 165 K/uL (156-360); RBC DIS.WIDTH-SD 57.2 % (39-53); RED BLOOD COUNT 3.82 M/uL (4.00-5.50); WHITE BLOOD COUNT 6.5 K/uL (4.1-10.2)
[2016-11-18 09:26] LABS: ANION GAP 10 MEQ/L (2-14); CHLORIDE 99 MEQ/L (99-109); POTASSIUM 3.4 MEQ/L (3.7-5.4); SAMPLE HEMOLYSIS CHECK 0; SAMPLE ICTERIC CHECK 0; SAMPLE LIPEMIA CHECK 0; SODIUM 135 MEQ/L (136-147)
[2016-11-18 09:31] LABS: GFR ESTIMATE (CALCULATED) 19 mL/min/; GLUCOSE 89 mg/dL (70-99); UREA NITROGEN (BUN) 24 mg/dL (9-23)
[2016-11-18 15:59] VITALS: BP 120/70
[2016-11-19 00:02] VITALS: BP 107/69
[2016-11-19 07:20] VITALS: BP 125/69
[2016-11-19 15:00] VITALS: BP 112/73
[2016-11-21 07:46] LABS: HEMATOCRIT 39.8 % (38.0-50.0); MCHC 29.1 G/DL (30.0-36.0); MCV 92.8 FL (86-99); MEAN PLAT.VOLUME 9.6 uM^3 (9.0-12.4); PLATELET COUNT 150 K/uL (156-360); RED BLOOD COUNT 4.29 M/uL (4.00-5.50); WHITE BLOOD COUNT 5.9 K/uL (4.1-10.2)
[2016-11-21 08:10] LABS: CHLORIDE 100 mEq/L (99-109); SODIUM 140 mEq/L (136-147)
[2016-11-21 08:11] LABS: POTASSIUM 4.2 mEq/L (3.7-5.4)
[2016-11-21 08:12] LABS: GLUCOSE 76 mg/dL (70-99)
[2016-11-21 08:13] LABS: ANION GAP 13 MEQ/L (2-14)
[2016-11-21 08:16] LABS: GFR ESTIMATE (CALCULATED) 16 mL/min/
[2016-11-21 08:17] LABS: UREA NITROGEN (BUN) 35 mg/dL (9-23)
[2016-11-22 00:09] VITALS: BP 111/63
== END 2016-11-22 12:12 | DRG 208 ==
LOC: EME 14:39 → 5EAST 17:37 → 4WEST 17:37 → EDOF 17:37 → 4WEST 20:31 → 5EAST 11-11 13:36
PROVIDERS: Emergency Medicine; Internal Medicine; Internal Medicine Critical Care Medicine; Internal Medicine Nephrology; Internal Medicine Pulmonary Disease; Obstetrics & Gynecology; Surgery Surgical Critical Care
PROC: 5A1945Z Respiratory Ventilation, 24-96 Consecutive Hours (ICD-10-PCS; 2016-11-04)
PROC: 0BH17EZ Insertion of Endotracheal Airway into Trachea, Via Natural or Artificial Opening (ICD-10-PCS; 2016-11-04)
PROC: 05H533Z Insertion of Infusion Device into Right Subclavian Vein, Percutaneous Approach (ICD-10-PCS; principal; 2016-11-05)
PROC: 05HM33Z Insertion of Infusion Device into Right Internal Jugular Vein, Percutaneous Approach (ICD-10-PCS; principal; 2016-11-05)
PROC: 5A1D60Z (ICD-10-PCS; 2016-11-06)
DX: J18.9 Pneumonia, unspecified organism (principal); J96.00 Acute respiratory failure, unspecified whether with hypoxia or hypercapnia; N25.81 Secondary hyperparathyroidism of renal origin; N18.5 Chronic kidney disease, stage 5; D63.1 Anemia in chronic kidney disease; I12.0 Hypertensive chronic kidney disease with stage 5 chronic kidney disease or end stage renal disease; E11.22 Type 2 diabetes mellitus with diabetic chronic kidney disease; I48.91 Unspecified atrial fibrillation; J44.9 Chronic obstructive pulmonary disease, unspecified; I50.32 Chronic diastolic (congestive) heart failure; I48.2 Chronic atrial fibrillation; M06.9 Rheumatoid arthritis, unspecified; L03.116 Cellulitis of left lower limb; L03.115 Cellulitis of right lower limb; N40.1 Benign prostatic hyperplasia with lower urinary tract symptoms; F32.9 Major depressive disorder, single episode, unspecified; Z51.5 Encounter for palliative care; I25.10 Atherosclerotic heart disease of native coronary artery without angina pectoris; I73.9 Peripheral vascular disease, unspecified; G47.33 Obstructive sleep apnea (adult) (pediatric); G89.29 Other chronic pain; M62.50 Muscle wasting and atrophy, not elsewhere classified, unspecified site; I34.0 Nonrheumatic mitral (valve) insufficiency; K21.9 Gastro-esophageal reflux disease without esophagitis; Z68.23 Body mass index [BMI] 23.0-23.9, adult; R54 Age-related physical debility; M21.942 Unspecified acquired deformity of hand, left hand; M21.941 Unspecified acquired deformity of hand, right hand; Z99.2 Dependence on renal dialysis; Z86.14 Personal history of Methicillin resistant Staphylococcus aureus infection; Z74.01 Bed confinement status; I25.2 Old myocardial infarction; Z86.73 Personal history of transient ischemic attack (TIA), and cerebral infarction without residual deficits; Z95.5 Presence of coronary angioplasty implant and graft; Z87.891 Personal history of nicotine dependence; Z95.1 Presence of aortocoronary bypass graft; Z87.440 Personal history of urinary (tract) infections; Z90.5 Acquired absence of kidney
CPT/HCPCS: 36600; 71010; 71020; 74230; 80048; 80053; 80069; 81003; 82803; 82948; 83540; 83605; 83735; 84100; 84466; 84484; 85025; 85027; 87040; 87070; 87086; 87106; 87205; 87641; 92526 GN; 92610 GN; 92611 GN; 93005; 94002; 94003; 94640; 94640 76; 94644; 94760; 94799; 99202; 99281; 99285; J0330; J0881; J1200; J1630; J1644; J1815; J1940; J1956; J2060; J2405; J2704; J3010; J7030; J7040; J7070; P9045; S0028; S0030

== ENCOUNTER 2016-12-13 07:14 | Day surgery (SDC) | payer OTHER ==
[~2016-12-13] VITALS: Ht 180.3 cm; Wt 69.0 kg
[~2016-12-13 07:14] MED LIST changes: +EUCERIN CREME57 GM TP; +LASIX80 MG PO; +OXYCODONE HCL10 MG PO; +RENVELA2.4 GM PO
== END 2016-12-13 10:05 ==
LOC: CATH 07:14
DX: T82.858A Stenosis of other vascular prosthetic devices, implants and grafts, initial encounter (principal); I12.0 Hypertensive chronic kidney disease with stage 5 chronic kidney disease or end stage renal disease; N18.6 End stage renal disease; Z99.2 Dependence on renal dialysis; I25.10 Atherosclerotic heart disease of native coronary artery without angina pectoris; Z95.1 Presence of aortocoronary bypass graft; I25.2 Old myocardial infarction; M19.90 Unspecified osteoarthritis, unspecified site; Z98.890 Other specified postprocedural states; Z88.8 Allergy status to other drugs, medicaments and biological substances; Y83.2 Surgical operation with anastomosis, bypass or graft as the cause of abnormal reaction of the patient, or of later complication, without mention of misadventure at the time of the procedure
CPT/HCPCS: C1725; C1769; C1894; J1644; J2250; J3010

== ENCOUNTER 2017-07-05 00:24 | Observation (INO) | payer OTHER ==
[~2017-07-05] VITALS: Ht 180.3 cm; Wt 83.9 kg
[2017-07-05 01:17] LABS: HEMATOCRIT 32.3 % (38.0-50.0); MCH 28.7 PG (29.0-34.0); MCV 92.6 FL (86-99); PLATELET COUNT 213 K/uL (156-360); RBC DIS.WIDTH-SD 50.8 % (39-53); RED BLOOD COUNT 3.49 M/uL (4.00-5.50); WHITE BLOOD COUNT 10.3 K/uL (4.1-10.2)
[2017-07-05 01:26] LABS: CHLORIDE 97 mEq/L (99-109); POTASSIUM 5.4 mEq/L (3.7-5.4); SODIUM 138 mEq/L (136-147)
[2017-07-05 01:27] LABS: GLUCOSE 93 mg/dL (70-99)
[2017-07-05 01:31] LABS: CREATININE 5.5 mg/dL (0.6-1.3); GFR ESTIMATE (CALCULATED) 11 mL/min/ (58.99-99999)
[2017-07-05 01:32] LABS: UREA NITROGEN (BUN) 47 mg/dL (9-23)
[2017-07-05 01:38] LABS: TROP-I INTERPRETATION NEGATIVE; TROPONIN-I 0.01 ng/mL (0.0-0.30)
[2017-07-05 06:42] LABS: TROP-I INTERPRETATION NEGATIVE; TROPONIN-I 0.08 ng/mL (0.0-0.30)
[2017-07-05 12:11] LABS: TROP-I INTERPRETATION NEGATIVE
[2017-07-05] MEDS ORDERED: NITROSTAT0.4 MG SL (12:39)
[2017-07-05] MEDS ORDERED: ZITHROMAX500 MG PO (12:39)
[2017-07-05] MEDS ORDERED: ASPIRIN325 MG PO (12:39)
[2017-07-05 13:48] VITALS: BP 109/57
== END 2017-07-05 13:49 | disposition home or self-care (01) ==
LOC: EME → EDBD 00:24 → EME 00:24 → EDOF 02:56 → ENRESERV 03:02 → CANRESERV 10:41 → EDOF 13:49
PROVIDERS: Hospitalist; Nurse Practitioner Family; Physician Assistant
DX: R07.9 Chest pain, unspecified (principal); I48.91 Unspecified atrial fibrillation; N18.6 End stage renal disease; Z99.2 Dependence on renal dialysis; I25.10 Atherosclerotic heart disease of native coronary artery without angina pectoris; Z95.1 Presence of aortocoronary bypass graft; I25.2 Old myocardial infarction; I50.32 Chronic diastolic (congestive) heart failure; Z74.01 Bed confinement status; M06.9 Rheumatoid arthritis, unspecified; I50.9 Heart failure, unspecified; Z90.5 Acquired absence of kidney; Z87.891 Personal history of nicotine dependence; Z82.49 Family history of ischemic heart disease and other diseases of the circulatory system; Z88.0 Allergy status to penicillin; Z88.1 Allergy status to other antibiotic agents; Z88.5 Allergy status to narcotic agent
CPT/HCPCS: 71046; 80048; 83880; 84484; 85027; 93005; 94640; 94799; 99202; 99281; 99284; G0378; J1644

== ENCOUNTER 2017-08-11 13:40 | Inpatient (IN) | payer OTHER ==
[~2017-08-11] VITALS: Ht 180.3 cm; Wt 79.0 kg
[~2017-08-11 13:40] MED LIST changes: +GABAPENTIN100 MG PO; +NITROSTAT0.4 MG SL; +ZITHROMAX500 MG PO
[2017-08-11 15:05] LABS: BASOPHIL (%) 0.6 % (0-1); BASOPHIL COUNT 0.1 K/uL (0-0.1); EOSINOPHIL (%) 1.1 % (0-5); EOSINOPHIL COUNT 0.1 K/uL (0-0.3); HEMATOCRIT 32.9 % (38.0-50.0); HEMOGLOBIN 10.1 G/DL (12.5-16.6); LYMPHOCYTE (%) 5.9 % (15-42); LYMPHOCYTE COUNT 0.7 K/uL (1.0-2.8); MCH 28.3 PG (29.0-34.0); MCHC 30.7 G/DL (30.0-36.0); MCV 92.2 FL (86-99); MONOCYTE (%) 11.4 % (3-12); MONOCYTE COUNT 1.3 K/uL (0-0.8); NEUTROPHIL COUNT 8.8 K/uL (1.8-6.4); PLATELET COUNT 226 K/uL (156-360); RBC DIS.WIDTH-CV 15.9 % (11.8-14.6); RBC DIS.WIDTH-SD 53.1 % (39-53); RED BLOOD COUNT 3.57 M/uL (4.00-5.50); WHITE BLOOD COUNT 11.1 K/uL (4.1-10.2)
[2017-08-11 15:12] LABS: ALBUMIN 3.4 g/dL (3.2-4.8)
[2017-08-11 15:13] LABS: CHLORIDE 99 mEq/L (99-109); POTASSIUM 4.7 mEq/L (3.7-5.4); SODIUM 139 mEq/L (136-147)
[2017-08-11 15:15] LABS: GLUCOSE 72 mg/dL (70-99); TOTAL PROTEIN 7.9 g/dL (6.4-8.3)
[2017-08-11 15:18] LABS: ALKALINE PHOSPHATASE 111 IU/L (3-129)
[2017-08-11 15:19] LABS: CREATININE 6.1 mg/dL (0.6-1.3); GFR ESTIMATE (CALCULATED) 10 mL/min/ (58.99-99999)
[2017-08-11 15:20] LABS: AST (GOT) 10 IU/L (2-34); UREA NITROGEN (BUN) 40 mg/dL (9-23)
[2017-08-11 15:22] LABS: ALT (GPT) 3 IU/L (3-49)
[2017-08-11 15:25] LABS: TROP-I INTERPRETATION NEGATIVE; TROPONIN-I 0.04 ng/mL (0.0-0.30)
[2017-08-11 17:41] LABS: BASE EXCESS -5.2 mEq/L (-3 to +3); BICARBONATE 21.6 mEq/L (22-26); CARBOXY HGB 2.4 % (0-5); DEVICE NC; METHEMOGLOBIN 0.8 % (0-1.5); O2 FLOW 4 L/MIN; PCO2 47 mm Hg (35-45); PO2 94 mm Hg (80-100); SITE RR; TOTAL RESP RATE 20 resp/min; pH 7.27 (7.35-7.45)
[2017-08-11 17:42] LABS: COMMENTS - BLOOD GASES A+C+
[2017-08-11 21:41] LABS: HEMATOCRIT 31.2 % (38.0-50.0); HEMOGLOBIN 9.3 G/DL (12.5-16.6); MCH 28.1 PG (29.0-34.0); MCHC 29.8 G/DL (30.0-36.0); MCV 94.3 FL (86-99); PLATELET COUNT 186 K/uL (156-360); RBC DIS.WIDTH-CV 15.9 % (11.8-14.6); RBC DIS.WIDTH-SD 54.1 % (39-53); RED BLOOD COUNT 3.31 M/uL (4.00-5.50); WHITE BLOOD COUNT 7.6 K/uL (4.1-10.2)
[2017-08-11 22:49] VITALS: BP 111/53
[2017-08-12 06:24] LABS: CHLORIDE 99 MEQ/L (99-109); CREATININE 6.8 MG/DL (0.6-1.3); GFR ESTIMATE (CALCULATED) 9 mL/min/ (58.99-99999); GLUCOSE 70 mg/dL (70-99); POTASSIUM 4.6 MEQ/L (3.7-5.4); SODIUM 137 MEQ/L (136-147); UREA NITROGEN (BUN) 46 mg/dL (9-23)
[2017-08-12 07:53] VITALS: BP 105/55
[2017-08-12] MEDS ORDERED: EMLA TP (12:03)
[2017-08-12] MEDS ORDERED: MIDODRINE HCL10 MG PO (12:05)
[2017-08-12] MEDS ORDERED: TYLENOL REGULA325 MG PO (12:07)
[2017-08-12 12:19] VITALS: BP 84/48
[2017-08-12 14:30] VITALS: BP 102/68
[2017-08-12 15:26] LABS: HDL CHOLESTEROL 25 MG/DL (Desirable>=40); LDL CHOLESTEROL 122 mg/dL (Desirable<100); NON-HDL CHOLESTEROL 160 mg/dL (Desirable<160); TOTAL CHOLESTEROL 185 mg/dL (Desirable<200); TRIGLYCERIDES 192 MG/DL (Normal: <150)
[2017-08-12 15:36] LABS: APPEARANCE TURBID ((CLEAR)); BILIRUBIN NEGATIVE; BLOOD LARGE; COLOR DK YELLOW ((YELLOW)); GLUCOSE (STRIP) NEGATIVE; KETONES 5; LEUKOCYTES LARGE; NITRITE NEGATIVE; PH, URINE 7.5 (5-8); PROTEIN (STRIP) 300; SPECIFIC GRAVITY 1.014 (1.000-1.030); UROBILINOGEN 0.2 MG/DL (0.2-1.0)
[2017-08-12 15:55] LABS: RED BLOOD CELLS TNTC /HPF (0-5); UCUL ADDED? YES; WHITE BLOOD CELLS TNTC /HPF (0-5)
[2017-08-12 16:01] VITALS: BP 107/69
[2017-08-12] MEDS ORDERED: ADVAIR HFA120 INHALA IH (18:03)
[2017-08-12 19:53] VITALS: BP 92/60
[2017-08-13 00:09] VITALS: BP 99/58
[2017-08-13 01:08] LABS: TROP-I INTERPRETATION NEGATIVE; TROPONIN-I 0.07 ng/mL (0.0-0.30)
[2017-08-13 01:45] VITALS: BP 145/87
[2017-08-13 02:08] LABS: BENZODIAZEPINES, URINE SCREEN Negative (200 ng/mL)
[2017-08-13 04:07] VITALS: BP 91/64
[2017-08-13 07:01] LABS: HEMATOCRIT 29.8 % (38.0-50.0); HEMOGLOBIN 8.8 G/DL (12.5-16.6); MCH 28.2 PG (29.0-34.0); MCHC 29.5 G/DL (30.0-36.0); MCV 95.5 FL (86-99); PLATELET COUNT 161 K/uL (156-360); RBC DIS.WIDTH-CV 15.7 % (11.8-14.6); RBC DIS.WIDTH-SD 54.3 % (39-53); RED BLOOD COUNT 3.12 M/uL (4.00-5.50); WHITE BLOOD COUNT 6.7 K/uL (4.1-10.2)
[2017-08-13 07:14] LABS: CHLORIDE 100 MEQ/L (99-109); CREATININE 7.9 MG/DL (0.6-1.3); GFR ESTIMATE (CALCULATED) 7 mL/min/ (58.99-99999); GLUCOSE 82 mg/dL (70-99); POTASSIUM 4.8 MEQ/L (3.7-5.4); SODIUM 137 MEQ/L (136-147); UREA NITROGEN (BUN) 58 mg/dL (9-23)
[2017-08-13 07:18] LABS: TROP-I INTERPRETATION NEGATIVE; TROPONIN-I 0.07 ng/mL (0.0-0.30)
[2017-08-13 13:05] VITALS: BP 102/62
[2017-08-13 15:39] VITALS: BP 92/56
[2017-08-13 20:00] VITALS: BP 94/63
[2017-08-14] VITALS (7 sets, daily range): BP systolic 79–116; BP diastolic 48–66
[2017-08-14 05:51] LABS: HEMATOCRIT 28.5 % (38.0-50.0); HEMOGLOBIN 8.5 G/DL (12.5-16.6); MCH 28.2 PG (29.0-34.0); MCHC 29.8 G/DL (30.0-36.0); MCV 94.7 FL (86-99); PLATELET COUNT 138 K/uL (156-360); RBC DIS.WIDTH-CV 15.5 % (11.8-14.6); RBC DIS.WIDTH-SD 53.9 % (39-53); RED BLOOD COUNT 3.01 M/uL (4.00-5.50); WHITE BLOOD COUNT 5.6 K/uL (4.1-10.2)
[2017-08-14 06:10] LABS: CHLORIDE 97 MEQ/L (99-109); CREATININE 8.3 MG/DL (0.6-1.3); GFR ESTIMATE (CALCULATED) 7 mL/min/ (58.99-99999); GLUCOSE 77 mg/dL (70-99); POTASSIUM 4.9 MEQ/L (3.7-5.4); SODIUM 135 MEQ/L (136-147); UREA NITROGEN (BUN) 63 mg/dL (9-23)
[2017-08-14 09:30] LABS: PHOSPHORUS 8.1 mg/dL (2.5-4.9)
[2017-08-14 10:00] LABS: HEMOGLOBIN A1c (GLYCOHEMOGLOB) 4.4 % (Below 5.7)
[2017-08-15 03:45] VITALS: BP 106/58
[2017-08-15 06:36] LABS: HEMATOCRIT 28.7 % (38.0-50.0); HEMOGLOBIN 8.4 G/DL (12.5-16.6); MCH 27.8 PG (29.0-34.0); MCHC 29.3 G/DL (30.0-36.0); PLATELET COUNT 120 K/uL (156-360); RBC DIS.WIDTH-CV 15.5 % (11.8-14.6); RBC DIS.WIDTH-SD 53.6 % (39-53); RED BLOOD COUNT 3.02 M/uL (4.00-5.50); WHITE BLOOD COUNT 4.6 K/uL (4.1-10.2)
[2017-08-15 07:17] LABS: CHLORIDE 102 MEQ/L (99-109); GLUCOSE 76 mg/dL (70-99); SODIUM 137 MEQ/L (136-147); UREA NITROGEN (BUN) 35 mg/dL (9-23)
[2017-08-15 07:19] LABS: CREATININE 5.2 MG/DL (0.6-1.3); GFR ESTIMATE (CALCULATED) 12 mL/min/ (58.99-99999); POTASSIUM 3.9 MEQ/L (3.7-5.4)
[2017-08-15 07:59] VITALS: BP 104/58
[2017-08-15 11:49] VITALS: BP 115/57
[2017-08-15 15:50] VITALS: BP 110/55
[2017-08-15 19:55] VITALS: BP 98/55
[2017-08-16 00:04] VITALS: BP 116/64; BP 124/70
[2017-08-16 06:09] LABS: ALBUMIN 2.5 G/DL (3.2-4.8); BASOPHIL (%) 0.4 % (0-1); CHLORIDE 98 MEQ/L (99-109); CREATININE 6.2 MG/DL (0.6-1.3); EOSINOPHIL (%) 4.7 % (0-5); EOSINOPHIL COUNT 0.3 K/uL (0-0.3); GFR ESTIMATE (CALCULATED) 10 mL/min/ (58.99-99999); GLUCOSE 73 mg/dL (70-99); HEMATOCRIT 29.1 % (38.0-50.0); HEMOGLOBIN 8.6 G/DL (12.5-16.6); IMMATURE GRANULOCYTE (%) 0.7 % (0.0-0.7); LYMPHOCYTE COUNT 0.8 K/uL (1.0-2.8); MCH 28.4 PG (29.0-34.0); MCHC 29.6 G/DL (30.0-36.0); MONOCYTE (%) 13.4 % (3-12); MONOCYTE COUNT 0.7 K/uL (0-0.8); NEUTROPHIL (%) 66.8 % (45-76); NEUTROPHIL COUNT 3.6 K/uL (1.8-6.4); PHOSPHORUS 5.7 mg/dL (2.5-4.9); PLATELET COUNT 125 K/uL (156-360); RBC DIS.WIDTH-CV 15.7 % (11.8-14.6); RBC DIS.WIDTH-SD 55.1 % (39-53); RED BLOOD COUNT 3.03 M/uL (4.00-5.50); SODIUM 131 MEQ/L (136-147); UREA NITROGEN (BUN) 39 mg/dL (9-23); WHITE BLOOD COUNT 5.4 K/uL (4.1-10.2)
[2017-08-16] MEDS ORDERED: ARANESP60 MCG/0.3 IV (14:08)
[2017-08-16] MEDS ORDERED: PRAVASTATIN SOD80 MG PO (14:09)
[2017-08-16] MEDS ORDERED: RENVELA800 MG PO (14:09)
[2017-08-16] MEDS ORDERED: DOCUSATE SODIU100 MG PO (14:10)
== END 2017-08-16 17:44 | disposition home health service (06) | DRG 70 ==
LOC: EME 13:40 → 5SOUTH 20:53 → EDOF 20:53 → ENRESERV 21:02 → 5SOUTH 22:32
PROVIDERS: Emergency Medicine; Hospitalist; Internal Medicine; Physician Assistant Medical
DX: G93.40 Encephalopathy, unspecified (principal); J69.0 Pneumonitis due to inhalation of food and vomit; N18.6 End stage renal disease; F11.20 Opioid dependence, uncomplicated; I50.30 Unspecified diastolic (congestive) heart failure; I13.2 Hypertensive heart and chronic kidney disease with heart failure and with stage 5 chronic kidney disease, or end stage renal disease; I48.91 Unspecified atrial fibrillation; R41.82 Altered mental status, unspecified; L89.611 Pressure ulcer of right heel, stage 1; L89.322 Pressure ulcer of left buttock, stage 2; L89.510 Pressure ulcer of right ankle, unstageable; L89.629 Pressure ulcer of left heel, unspecified stage; I95.3 Hypotension of hemodialysis; D69.6 Thrombocytopenia, unspecified; R56.9 Unspecified convulsions; K86.89 Other specified diseases of pancreas; R13.10 Dysphagia, unspecified; L89.312 Pressure ulcer of right buttock, stage 2; I48.2 Chronic atrial fibrillation; E78.5 Hyperlipidemia, unspecified; G47.33 Obstructive sleep apnea (adult) (pediatric); J44.9 Chronic obstructive pulmonary disease, unspecified; N39.0 Urinary tract infection, site not specified; J98.11 Atelectasis; E87.2 Acidosis; I95.9 Hypotension, unspecified; N40.0 Benign prostatic hyperplasia without lower urinary tract symptoms; R94.31 Abnormal electrocardiogram [ECG] [EKG]; R00.0 Tachycardia, unspecified; I25.10 Atherosclerotic heart disease of native coronary artery without angina pectoris; I73.9 Peripheral vascular disease, unspecified; D63.1 Anemia in chronic kidney disease; M79.671 Pain in right foot; R40.0 Somnolence; R09.02 Hypoxemia; E21.3 Hyperparathyroidism, unspecified; Z66 Do not resuscitate; M06.9 Rheumatoid arthritis, unspecified; Z99.81 Dependence on supplemental oxygen; Z99.2 Dependence on renal dialysis; Z95.5 Presence of coronary angioplasty implant and graft; I25.2 Old myocardial infarction; Z87.891 Personal history of nicotine dependence; Z88.5 Allergy status to narcotic agent; Z88.0 Allergy status to penicillin; L89.899 Pressure ulcer of other site, unspecified stage; Z74.01 Bed confinement status; Z95.1 Presence of aortocoronary bypass graft; G89.29 Other chronic pain; Z22.322 Carrier or suspected carrier of Methicillin resistant Staphylococcus aureus
CPT/HCPCS: 36600; 70450; 70551; 71045; 71046; 71250; 80048; 80053; 80061; 80069; 80306 90; 81003; 82140; 82803; 83036; 83605; 84100; 84484; 85025; 85027; 87040; 87086; 87449; 87641; 92526 GN; 92610 GN; 93005; 94640; 94640 76; 94760; 94799; 95819; 99202; 99281; 99285; C1755; J0881; J1580; J1644; J1956; J2060; J2310; J3370; J7040; J7050; S0030

== ENCOUNTER 2017-08-24 07:24 | Day surgery (SDC) | payer OTHER ==
[~2017-08-24] VITALS: Ht 180.3 cm; Wt 77.1 kg
[~2017-08-24 07:24] MED LIST changes: +ARANESP60 MCG/0.3 IV; +DOCUSATE SODIU100 MG PO; +EMLA TP; +LIDOCAINE5 GM TP; +PRAVASTATIN SOD80 MG PO
== END 2017-08-24 11:33 | disposition home or self-care (01) ==
LOC: CATH 07:24
DX: T82.41XA Breakdown (mechanical) of vascular dialysis catheter, initial encounter (principal); Y83.2 Surgical operation with anastomosis, bypass or graft as the cause of abnormal reaction of the patient, or of later complication, without mention of misadventure at the time of the procedure; N18.6 End stage renal disease; Z99.2 Dependence on renal dialysis; Z95.1 Presence of aortocoronary bypass graft; I25.10 Atherosclerotic heart disease of native coronary artery without angina pectoris; E78.00 Pure hypercholesterolemia, unspecified; I48.91 Unspecified atrial fibrillation; D64.9 Anemia, unspecified; Z87.891 Personal history of nicotine dependence
CPT/HCPCS: 87641; C1725; C1769; C1894; J1644; J2250; J3010; S0020

== ENCOUNTER 2017-10-24 23:07 | Inpatient (IN) | payer OTHER ==
[~2017-10-24] VITALS: Ht 177.8 cm; Wt 80.3 kg
[2017-10-25 00:06] LABS: BASOPHIL (%) 0.6 % (0-1); EOSINOPHIL (%) 0.7 % (0-5); EOSINOPHIL COUNT 0.1 K/uL (0-0.3); HEMATOCRIT 33.4 % (38.0-50.0); HEMOGLOBIN 9.9 G/DL (12.5-16.6); IMMATURE GRANULOCYTE (%) 0.9 % (0.0-0.7); LYMPHOCYTE (%) 4.9 % (15-42); LYMPHOCYTE COUNT 0.3 K/uL (1.0-2.8); MCH 25.8 PG (29.0-34.0); MCHC 29.6 G/DL (30.0-36.0); MCV 87.2 FL (86-99); MONOCYTE (%) 6.1 % (3-12); MONOCYTE COUNT 0.4 K/uL (0-0.8); NEUTROPHIL (%) 86.8 % (45-76); PLATELET COUNT 201 K/uL (156-360); RBC DIS.WIDTH-SD 54.4 % (39-53); RED BLOOD COUNT 3.83 M/uL (4.00-5.50); WHITE BLOOD COUNT 6.9 K/uL (4.1-10.2)
[2017-10-25 00:10] LABS: CARBON DIOXIDE (BICARBONATE) 27.4 MEQ/L (20-31)
[2017-10-25 00:16] LABS: INTER. NORMALIZED RATIO 1.8
[2017-10-25 00:18] LABS: PTT 37.2 SEC (25-37)
[2017-10-25 00:19] LABS: ALBUMIN 2.9 g/dL (3.2-4.8)
[2017-10-25 00:20] LABS: CHLORIDE 96 mEq/L (99-109); POTASSIUM 4.9 mEq/L (3.7-5.4); SODIUM 135 mEq/L (136-147)
[2017-10-25 00:22] LABS: GLUCOSE 173 mg/dL (70-99); TOTAL PROTEIN 6.6 g/dL (6.4-8.3)
[2017-10-25 00:25] LABS: ALKALINE PHOSPHATASE 120 IU/L (3-129)
[2017-10-25 00:26] LABS: CREATININE 3.9 mg/dL (0.6-1.3); GFR ESTIMATE (CALCULATED) 16 mL/min/ (58.99-99999)
[2017-10-25 00:27] LABS: AST (GOT) 7 IU/L (2-34); UREA NITROGEN (BUN) 36 mg/dL (9-23)
[2017-10-25 00:29] LABS: ALT (GPT) 3 IU/L (3-49); LIPASE 3 U/L (1.0-51.0)
[2017-10-25 00:30] LABS: TROP-I INTERPRETATION NEGATIVE; TROPONIN-I 0.08 ng/mL (0.0-0.30)
[2017-10-25 07:40] LABS: TROP-I INTERPRETATION POSITIVE; TROPONIN-I 1.93 ng/mL (0.0-0.30)
[2017-10-25 08:49] LABS: INTER. NORMALIZED RATIO 2.9
[2017-10-25 08:58] LABS: PTT 57.5 SEC (25-37)
[2017-10-25] MEDS ORDERED: DOCUSATE SODIU100 MG PO (09:49)
[2017-10-25] MEDS ORDERED: OXYCODONE HCL10 MG PO (09:51)
[2017-10-25] MEDS ORDERED: RENVELA800 MG PO ×3 (09:52→09:54)
[2017-10-25 11:30] LABS: ALBUMIN 3.1 G/DL (3.2-4.8); CHLORIDE 93 MEQ/L (99-109); CREATININE 4.1 MG/DL (0.6-1.3); GFR ESTIMATE (CALCULATED) 16 mL/min/ (58.99-99999); PHOSPHORUS 6.4 mg/dL (2.5-4.9); POTASSIUM 5.5 MEQ/L (3.7-5.4); SODIUM 132 MEQ/L (136-147); UREA NITROGEN (BUN) 39 mg/dL (9-23)
[2017-10-25 11:42] LABS: GLUCOSE 119 mg/dL (70-99)
[2017-10-25 12:14] LABS: BASOPHIL (%) 0.2 % (0-1); EOSINOPHIL (%) 0.2 % (0-5); HEMATOCRIT 29.2 % (38.0-50.0); HEMOGLOBIN 8.6 G/DL (12.5-16.6); IMMATURE GRANULOCYTE (%) 0.4 % (0.0-0.7); LYMPHOCYTE (%) 11.2 % (15-42); LYMPHOCYTE COUNT 0.5 K/uL (1.0-2.8); MCH 25.4 PG (29.0-34.0); MCHC 29.5 G/DL (30.0-36.0); MCV 86.1 FL (86-99); MONOCYTE (%) 10.2 % (3-12); MONOCYTE COUNT 0.5 K/uL (0-0.8); NEUTROPHIL (%) 77.8 % (45-76); NEUTROPHIL COUNT 3.7 K/uL (1.8-6.4); PLATELET COUNT 160 K/uL (156-360); RBC DIS.WIDTH-SD 53.1 % (39-53); RED BLOOD COUNT 3.39 M/uL (4.00-5.50); WHITE BLOOD COUNT 4.7 K/uL (4.1-10.2)
[2017-10-25 12:59] LABS: TROP-I INTERPRETATION POSITIVE
[2017-10-25 16:07] VITALS: BP 125/61
[2017-10-25 17:07] VITALS: BP 129/76
[2017-10-25 19:15] VITALS: BP 132/54
[2017-10-26] VITALS (8 sets, daily range): BP systolic 109–145; BP diastolic 56–85
[2017-10-26 08:50] LABS: HEMATOCRIT 30.7 % (38.0-50.0); HEMOGLOBIN 8.7 G/DL (12.5-16.6); MCH 24.9 PG (29.0-34.0); MCHC 28.3 G/DL (30.0-36.0); PLATELET COUNT 182 K/uL (156-360); RBC DIS.WIDTH-SD 54.3 % (39-53); RED BLOOD COUNT 3.49 M/uL (4.00-5.50); WHITE BLOOD COUNT 2.2 K/uL (4.1-10.2)
[2017-10-26 09:00] LABS: PTT 51.6 SEC (25-37)
[2017-10-26 09:09] LABS: INTER. NORMALIZED RATIO 1.5
[2017-10-26 09:20] LABS: CHLORIDE 97 MEQ/L (99-109); GFR ESTIMATE (CALCULATED) 24 mL/min/ (58.99-99999); GLUCOSE 147 mg/dL (70-99); POTASSIUM 4.8 MEQ/L (3.7-5.4); SODIUM 133 MEQ/L (136-147); UREA NITROGEN (BUN) 28 mg/dL (9-23)
[2017-10-26 09:21] LABS: CREATININE 2.8 MG/DL (0.6-1.3)
[2017-10-26 09:23] LABS: TROP-I INTERPRETATION INDETERMINATE; TROPONIN-I 0.58 ng/mL (0.0-0.30)
[2017-10-27] VITALS (7 sets, daily range): BP systolic 89–162; BP diastolic 53–84
[2017-10-27 07:22] LABS: HEMOGLOBIN 9.9 G/DL (12.5-16.6); MCH 25.3 PG (29.0-34.0); MCHC 29.1 G/DL (30.0-36.0); RBC DIS.WIDTH-CV 17.1 % (11.8-14.6); RBC DIS.WIDTH-SD 54.1 % (39-53); RED BLOOD COUNT 3.91 M/uL (4.00-5.50); WHITE BLOOD COUNT 5.4 K/uL (4.1-10.2)
[2017-10-27 07:23] LABS: PLATELET COUNT 317 K/uL (156-360)
[2017-10-27 07:55] LABS: CHLORIDE 91 MEQ/L (99-109); GLUCOSE 139 mg/dL (70-99); SODIUM 128 MEQ/L (136-147); VANCOMYCIN, TROUGH 12.9 MCG/ML (10-20)
[2017-10-27 07:56] LABS: CREATININE 3.6 MG/DL (0.6-1.3); GFR ESTIMATE (CALCULATED) 18 mL/min/ (58.99-99999); POTASSIUM 6.4 MEQ/L (3.7-5.4); UREA NITROGEN (BUN) 45 mg/dL (9-23)
[2017-10-27 10:09] LABS: TROP-I INTERPRETATION POSITIVE; TROPONIN-I 0.96 ng/mL (0.0-0.30)
[2017-10-27 13:28] LABS: CHLORIDE 96 MEQ/L (99-109); CREATININE 2.3 MG/DL (0.6-1.3); GFR ESTIMATE (CALCULATED) 30 mL/min/ (58.99-99999); GLUCOSE 104 mg/dL (70-99); POTASSIUM 4.7 MEQ/L (3.7-5.4); SODIUM 134 MEQ/L (136-147); UREA NITROGEN (BUN) 26 mg/dL (9-23)
[2017-10-27 21:59] LABS: TROPONIN-I 6.46 ng/mL (0.0-0.30)
[2017-10-27 22:00] LABS: TROP-I INTERPRETATION POSITIVE
[2017-10-27 22:01] LABS: CHLORIDE 96 MEQ/L (99-109); CREATININE 2.2 MG/DL (0.6-1.3); GFR ESTIMATE (CALCULATED) 32 mL/min/ (58.99-99999); GLUCOSE 91 mg/dL (70-99); MAGNESIUM 2.1 mg/dl (1.3-2.7); PHOSPHORUS 5.3 mg/dL (2.5-4.9); POTASSIUM 4.4 MEQ/L (3.7-5.4); SODIUM 131 MEQ/L (136-147); UREA NITROGEN (BUN) 27 mg/dL (9-23)
[2017-10-27 22:35] LABS: THYROTROPIN (TSH) 0.65 MIU/L (0.4-5.5)
[2017-10-28] VITALS (18 sets, daily range): BP systolic 70–130; BP diastolic 44–101
[2017-10-28 06:34] LABS: INTER. NORMALIZED RATIO 1.6
[2017-10-28 06:50] LABS: PTT 96.7 SEC (25-37)
[2017-10-28 06:54] LABS: CHLORIDE 95 MEQ/L (99-109); CREATININE 2.6 MG/DL (0.6-1.3); GFR ESTIMATE (CALCULATED) 26 mL/min/ (58.99-99999); GLUCOSE 113 mg/dL (70-99); HEMATOCRIT 32.7 % (38.0-50.0); HEMOGLOBIN 9.5 G/DL (12.5-16.6); MCH 25.5 PG (29.0-34.0); MCHC 29.1 G/DL (30.0-36.0); MCV 87.9 FL (86-99); RBC DIS.WIDTH-CV 17.1 % (11.8-14.6); RBC DIS.WIDTH-SD 54.6 % (39-53); RED BLOOD COUNT 3.72 M/uL (4.00-5.50); SODIUM 131 MEQ/L (136-147); UREA NITROGEN (BUN) 33 mg/dL (9-23); WHITE BLOOD COUNT 5.5 K/uL (4.1-10.2)
[2017-10-28 07:47] LABS: PLAT.SUFFICIENCY ADEQUATE; PLATELET COUNT 218 K/uL (156-360)
[2017-10-28 08:28] LABS: TROP-I INTERPRETATION POSITIVE; TROPONIN-I 4.73 ng/mL (0.0-0.30)
[2017-10-28 16:49] LABS: BASE EXCESS -5.3 mEq/L (-3 to +3); BICARBONATE 21.9 mEq/L (22-26); CARBOXY HGB 1.3 % (0-5); COMMENTS - BLOOD GASES A+C+; DEVICE NC; O2 FLOW 6 L/MIN; PCO2 50 mm Hg (35-45); PO2 119 mm Hg (80-100); SITE RR; pH 7.25 (7.35-7.45)
[2017-10-28 18:05] LABS: TROP-I INTERPRETATION POSITIVE
[2017-10-28 18:45] LABS: BASE EXCESS -11.2 mEq/L (-3 to +3); CARBOXY HGB 1.6 % (0-5); METHEMOGLOBIN 1.4 % (0-1.5); PO2 78 mm Hg (80-100)
[2017-10-28 18:46] LABS: BICARBONATE 15.5 mEq/L (22-26); COMMENTS - BLOOD GASES A+C+; DEVICE HHFNC; PCO2 37 mm Hg (35-45); SITE RR
[2017-10-28 18:47] LABS: FI02 25 %; O2 FLOW 40 L/MIN; TOTAL RESP RATE 25 resp/min; pH 7.23 (7.35-7.45)
[2017-10-29] VITALS (27 sets, daily range): BP systolic 81–129; BP diastolic 53–98
[2017-10-29 00:27] LABS: BASE EXCESS -2.8 mEq/L (-3 to +3); BICARBONATE 21.8 mEq/L (22-26); COMMENTS - BLOOD GASES C+; DEVICE VENT; FI02 60 %; MECHANICAL RATE 20 resp/min; METHEMOGLOBIN 1.4 % (0-1.5); MODE AC; PCO2 36 mm Hg (35-45); PEEP 5 CM/H20; PO2 281 mm Hg (80-100); SITE RR; TIDAL VOLUME 450 ML; TOTAL RESP RATE 23 resp/min; pH 7.39 (7.35-7.45)
[2017-10-29 05:25] LABS: ALBUMIN 2.8 G/DL (3.2-4.8); CHLORIDE 94 MEQ/L (99-109); POTASSIUM 4.6 MEQ/L (3.7-5.4); SODIUM 132 MEQ/L (136-147)
[2017-10-29 05:31] LABS: GFR ESTIMATE (CALCULATED) 21 mL/min/ (58.99-99999); GLUCOSE 138 mg/dL (70-99); PHOSPHORUS 5.8 mg/dL (2.5-4.9); UREA NITROGEN (BUN) 45 mg/dL (9-23)
[2017-10-29 05:32] LABS: CREATININE 3.2 MG/DL (0.6-1.3)
[2017-10-29 05:35] LABS: HEMATOCRIT 31.6 % (38.0-50.0); HEMOGLOBIN 9.6 G/DL (12.5-16.6); MCH 25.6 PG (29.0-34.0); MCHC 30.4 G/DL (30.0-36.0); MCV 84.3 FL (86-99); NRBC (%) 0.7 /100 WBC (0-0); PLATELET COUNT 393 K/uL (156-360); RBC DIS.WIDTH-CV 17.1 % (11.8-14.6); RBC DIS.WIDTH-SD 51.9 % (39-53); RED BLOOD COUNT 3.75 M/uL (4.00-5.50); WHITE BLOOD COUNT 9.7 K/uL (4.1-10.2)
[2017-10-29 15:23] LABS: BASE EXCESS -2.4 mEq/L (-3 to +3); BICARBONATE 22.5 mEq/L (22-26); CARBOXY HGB 1.3 % (0-5); METHEMOGLOBIN 1.4 % (0-1.5); PCO2 38 mm Hg (35-45); pH 7.38 (7.35-7.45)
[2017-10-29 15:24] LABS: COMMENTS - BLOOD GASES A+C+; DEVICE VENT; FI02 40 %; MECHANICAL RATE 20 resp/min; MODE ACVC; PEEP 5 CM/H20; PO2 138 mm Hg (80-100); SITE RR; TIDAL VOLUME 450 ML; TOTAL RESP RATE 26 resp/min
[2017-10-30] VITALS (22 sets, daily range): BP systolic 96–120; BP diastolic 57–77
[2017-10-30 05:43] LABS: BASOPHIL (%) 0 % (0-1); EOSINOPHIL (%) 0 % (0-5); HEMATOCRIT 30.2 % (38.0-50.0); HEMOGLOBIN 8.9 G/DL (12.5-16.6); IMMATURE GRANULOCYTE (%) 1.3 % (0.0-0.7); LYMPHOCYTE (%) 7.5 % (15-42); LYMPHOCYTE COUNT 0.5 K/uL (1.0-2.8); MCH 24.7 PG (29.0-34.0); MCHC 29.5 G/DL (30.0-36.0); MCV 83.7 FL (86-99); MONOCYTE (%) 3.4 % (3-12); MONOCYTE COUNT 0.2 K/uL (0-0.8); NEUTROPHIL (%) 87.8 % (45-76); NEUTROPHIL COUNT 5.5 K/uL (1.8-6.4); RBC DIS.WIDTH-SD 51.7 % (39-53); RED BLOOD COUNT 3.61 M/uL (4.00-5.50); WHITE BLOOD COUNT 6.2 K/uL (4.1-10.2)
[2017-10-30 06:04] LABS: ALBUMIN 2.6 G/DL (3.2-4.8); CHLORIDE 94 MEQ/L (99-109); GFR ESTIMATE (CALCULATED) 16 mL/min/ (58.99-99999); GLUCOSE 134 mg/dL (70-99); PHOSPHORUS 5.1 mg/dL (2.5-4.9); POTASSIUM 4.6 MEQ/L (3.7-5.4); SODIUM 133 MEQ/L (136-147); UREA NITROGEN (BUN) 56 mg/dL (9-23)
[2017-10-30 06:05] LABS: CREATININE 3.9 MG/DL (0.6-1.3)
[2017-10-30 06:33] LABS: PLATELET CLUMPS PRESENT - PLATELET COUNT APPEARS ADQ.; PLATELET COUNT UNABLE TO REPORT K/uL (156-360)
[2017-10-30 07:29] LABS: MAGNESIUM 2.1 mg/dl (1.3-2.7)
[2017-10-31] VITALS (18 sets, daily range): BP systolic 89–120; BP diastolic 56–84
[2017-10-31 05:42] LABS: BASE EXCESS 0.3 mEq/L (-3 to +3); BICARBONATE 24.6 mEq/L (22-26); CARBOXY HGB 1.8 % (0-5); COMMENTS - BLOOD GASES C+NA; DEVICE VENT; FI02 30 %; MECHANICAL RATE 20 resp/min; METHEMOGLOBIN 1.2 % (0-1.5); MODE AC; PCO2 37 mm Hg (35-45); PO2 87 mm Hg (80-100); SITE LB; TIDAL VOLUME 450 ML; TOTAL RESP RATE 20 resp/min; pH 7.43 (7.35-7.45)
[2017-10-31 05:43] LABS: PEEP 5 CM/H20
[2017-10-31 06:06] LABS: ALBUMIN 2.6 G/DL (3.2-4.8); CHLORIDE 95 MEQ/L (99-109); CHLORIDE 96 MEQ/L (99-109); CREATININE 2.4 MG/DL (0.6-1.3); GFR ESTIMATE (CALCULATED) 29 mL/min/ (58.99-99999); GLUCOSE 167 mg/dL (70-99); MAGNESIUM 1.9 mg/dl (1.3-2.7); PHOSPHORUS 3.5 mg/dL (2.5-4.9); PHOSPHORUS 3.6 mg/dL (2.5-4.9); POTASSIUM 4.1 MEQ/L (3.7-5.4); SODIUM 136 MEQ/L (136-147); SODIUM 137 MEQ/L (136-147); UREA NITROGEN (BUN) 27 mg/dL (9-23)
[2017-10-31 06:07] LABS: CREATININE 2.4 MG/DL (0.6-1.3); UREA NITROGEN (BUN) 27 mg/dL (9-23)
[2017-10-31 06:11] LABS: BASOPHIL (%) 0 % (0-1); EOSINOPHIL (%) 0 % (0-5); HEMOGLOBIN 8.9 G/DL (12.5-16.6); IMMATURE GRANULOCYTE (%) 1.2 % (0.0-0.7); LYMPHOCYTE (%) 3.7 % (15-42); LYMPHOCYTE COUNT 0.3 K/uL (1.0-2.8); MCH 25.2 PG (29.0-34.0); MCHC 29.7 G/DL (30.0-36.0); MONOCYTE (%) 2.5 % (3-12); MONOCYTE COUNT 0.2 K/uL (0-0.8); NEUTROPHIL (%) 92.6 % (45-76); NEUTROPHIL COUNT 8.2 K/uL (1.8-6.4); NRBC (%) 0.9 /100 WBC (0-0); RBC DIS.WIDTH-CV 17.1 % (11.8-14.6); RBC DIS.WIDTH-SD 52.2 % (39-53); RED BLOOD COUNT 3.53 M/uL (4.00-5.50); WHITE BLOOD COUNT 8.9 K/uL (4.1-10.2)
[2017-10-31 06:30] LABS: PLATELET COUNT 209 K/uL (156-360)
[2017-10-31 11:34] LABS: BASE EXCESS 1.5 mEq/L (-3 to +3); BICARBONATE 25.9 mEq/L (22-26); CARBOXY HGB 1.5 % (0-5); COMMENTS - BLOOD GASES A+C+; DEVICE VENT; FI02 30 %; METHEMOGLOBIN 1.4 % (0-1.5); MODE SPONT; O2 FLOW 50 L/MIN; PCO2 39 mm Hg (35-45); PEEP 5 CM/H20; PO2 91 mm Hg (80-100); PRES. SUPPORT 12 CM/H2O; SITE RR; TIDAL VOLUME 580 ML; TOTAL RESP RATE 21 resp/min; pH 7.43 (7.35-7.45)
[2017-11-01] VITALS (21 sets, daily range): BP systolic 81–113; BP diastolic 56–92
[2017-11-01 05:43] LABS: BASOPHIL (%) 0.1 % (0-1); EOSINOPHIL (%) 0.1 % (0-5); HEMATOCRIT 30.3 % (38.0-50.0); HEMOGLOBIN 8.8 G/DL (12.5-16.6); IMMATURE GRANULOCYTE (%) 2.2 % (0.0-0.7); LYMPHOCYTE COUNT 0.4 K/uL (1.0-2.8); MCH 25.2 PG (29.0-34.0); MCV 86.8 FL (86-99); MONOCYTE (%) 2.8 % (3-12); MONOCYTE COUNT 0.3 K/uL (0-0.8); NEUTROPHIL (%) 90.8 % (45-76); NEUTROPHIL COUNT 9.3 K/uL (1.8-6.4); NRBC (%) 1.6 /100 WBC (0-0); PLATELET COUNT 203 K/uL (156-360); RBC DIS.WIDTH-CV 17.5 % (11.8-14.6); RBC DIS.WIDTH-SD 53.6 % (39-53); RED BLOOD COUNT 3.49 M/uL (4.00-5.50); WHITE BLOOD COUNT 10.3 K/uL (4.1-10.2)
[2017-11-01 06:35] LABS: ALBUMIN 2.8 G/DL (3.2-4.8); CHLORIDE 97 MEQ/L (99-109); GFR ESTIMATE (CALCULATED) 21 mL/min/ (58.99-99999); GLUCOSE 126 mg/dL (70-99); PHOSPHORUS 4.3 mg/dL (2.5-4.9); POTASSIUM 4.5 MEQ/L (3.7-5.4); SODIUM 137 MEQ/L (136-147); UREA NITROGEN (BUN) 38 mg/dL (9-23)
[2017-11-01 06:40] LABS: CREATININE 3.1 MG/DL (0.6-1.3)
[2017-11-02] VITALS: BP 108/78
[2017-11-02 04:01] VITALS: BP 112/75
[2017-11-02 07:11] LABS: CHLORIDE 99 MEQ/L (99-109); CREATININE 2.1 MG/DL (0.6-1.3); GFR ESTIMATE (CALCULATED) 34 mL/min/ (58.99-99999); GLUCOSE 116 mg/dL (70-99); POTASSIUM 4.8 MEQ/L (3.7-5.4); SODIUM 139 MEQ/L (136-147); UREA NITROGEN (BUN) 19 mg/dL (9-23)
[2017-11-02 10:01] VITALS: BP 94/72
[2017-11-02 12:02] VITALS: BP 105/81
== END 2017-11-02 16:14 | DRG 166 ==
LOC: EME → EDBD 23:07 → 4EAST 10-25 03:22 → 4WEST 10-25 03:22 → EDOF 10-25 03:22 → 5SOUTH 10-25 03:22 → ENRESERV 10-25 03:44 → EDOF 10-25 04:48 → ENRESERV 10-25 11:17 → 4EAST 10-25 15:52 → ENRESERV 10-26 16:09 → 5SOUTH 10-26 17:18 → ENRESERV 10-28 07:56 → 4EAST 10-28 11:53 → ENRESERV 10-28 16:57 → 4EAST 10-28 16:57 → ENRESERV 10-28 17:07 → 4WEST 10-28 17:18 → ENRESERV 11-02 13:43 → 4WEST 11-02 13:57 → ENRESERV 11-02 14:06 → 4WEST 11-02 16:08
PROVIDERS: Emergency Medicine; Hospitalist; Internal Medicine; Internal Medicine Critical Care Medicine; Internal Medicine Nephrology; Internal Medicine Pulmonary Disease; Obstetrics & Gynecology; Physician Assistant Medical; Specialist; Surgery
DX: J96.01 Acute respiratory failure with hypoxia (principal); J96.02 Acute respiratory failure with hypercapnia; J15.212 Pneumonia due to Methicillin resistant Staphylococcus aureus; Y95 Nosocomial condition; I21.4 Non-ST elevation (NSTEMI) myocardial infarction; D63.1 Anemia in chronic kidney disease; T82.590A Other mechanical complication of surgically created arteriovenous fistula, initial encounter; Y83.2 Surgical operation with anastomosis, bypass or graft as the cause of abnormal reaction of the patient, or of later complication, without mention of misadventure at the time of the procedure; J44.0 Chronic obstructive pulmonary disease with (acute) lower respiratory infection; J44.1 Chronic obstructive pulmonary disease with (acute) exacerbation; I13.2 Hypertensive heart and chronic kidney disease with heart failure and with stage 5 chronic kidney disease, or end stage renal disease; I50.32 Chronic diastolic (congestive) heart failure; N18.6 End stage renal disease; Z99.2 Dependence on renal dialysis; Z99.81 Dependence on supplemental oxygen; E11.22 Type 2 diabetes mellitus with diabetic chronic kidney disease; Z51.5 Encounter for palliative care; E43 Unspecified severe protein-calorie malnutrition; Z68.1 Body mass index [BMI] 19.9 or less, adult; E83.39 Other disorders of phosphorus metabolism; E87.1 Hypo-osmolality and hyponatremia; E87.2 Acidosis; E87.5 Hyperkalemia; I95.3 Hypotension of hemodialysis; N25.81 Secondary hyperparathyroidism of renal origin; D50.9 Iron deficiency anemia, unspecified; E11.51 Type 2 diabetes mellitus with diabetic peripheral angiopathy without gangrene; G47.33 Obstructive sleep apnea (adult) (pediatric); I27.20 Pulmonary hypertension, unspecified; I25.10 Atherosclerotic heart disease of native coronary artery without angina pectoris; J98.11 Atelectasis; L97.909 Non-pressure chronic ulcer of unspecified part of unspecified lower leg with unspecified severity; I25.2 Old myocardial infarction; I34.0 Nonrheumatic mitral (valve) insufficiency; I42.0 Dilated cardiomyopathy; I47.2 Ventricular tachycardia; I48.2 Chronic atrial fibrillation; I49.3 Ventricular premature depolarization; I77.1 Stricture of artery; E78.5 Hyperlipidemia, unspecified; M06.9 Rheumatoid arthritis, unspecified; Z74.01 Bed confinement status; Z82.49 Family history of ischemic heart disease and other diseases of the circulatory system; Z87.891 Personal history of nicotine dependence; Z90.5 Acquired absence of kidney; Z95.5 Presence of coronary angioplasty implant and graft
CPT/HCPCS: 36600; 71045; 71250; 80048; 80048 91; 80053; 80069; 80202; 82803; 82948; 83605; 83690; 83735; 83880; 84100; 84132 91; 84443; 84484; 85025; 85027; 85610; 85730; 87040; 87070; 87077; 87147; 87186; 87205; 87641; 92610 GN; 93005; 93306; 94002; 94003; 94640; 94640 76; 94667; 94668; 94760; 94799; 99202; 99281; 99285; A6214; C1725; C1751; C1753; C1769; C1894; J0282; J0881; J1644; J1756; J2060; J2250; J2310; J2704; J2785; J2920; J2930; J3010; J3370; J7040; J7050; S0028; S0073